=== PATIENT | female | born 2000 | race Caucasian/White ===

== ENCOUNTER 2020-06-24 09:56 | Inpatient (IN) | payer MEDICAID, SELFPAY ==
[2020-06-24] VITALS (32 sets, daily range): BP systolic 113–122; BP diastolic 57–84; PULSE 92–142; RESP 8–20; TEMP 36.5–37.7; O2SAT 100
--- NOTE | 2020-06-24 10:00 | RT.EKG_ITS ---
APPROVED REPORT Exam: Resting ECG Patient Location: E HR:131 bpm ECG Measurements Heart Rate 131 AXIS OH 120 P 73 QRSd 71 QRS 87 QT 288 T 56 QTc 426 Conclusion Sinus tachycardia...rate> 99
[2020-06-24] MEDS: Lactated Ringers 1,000 ML 1000 ML IV ×2 (10:40→12:11)
--- NOTE | 2020-06-24 10:43 | W.ED.GENAD ---
Discharge Plan Disposition Patient Disposition: OTHER Condition: Serious Discharge Details Clinical Impression: Colitis, Anemia Primary Care Provider: Mesha,Local ED Provider: Oseas Siu Home Meds and New Rx's Prescriptions: No Action No Known Home Meds RF: 0 Medical Decision Making This is a cachectic, frail, dry appearing 20-year-old female who is presenting today for a 1 year history of abdominal pain, nausea, intermittent diarrhea-constipation, 40 pound weight loss. She denies alcohol use, drug use, or smoking. She does report that celiac disease runs in her family. She has never sought medical attention until today. Patient is anxious, tearful, appears both physically and mentally uncomfortable. Patient admits that she does not like the hospital and that she did not want to come here today. Her family made her come. Case was immediately discussed with Dr. Dietz. IV access obtained. Patient will receive 2 L lactated Ringer's, 1 L normal saline, given her tachycardia will obtain routine laboratory values including troponin, D-dimer, magnesium, EKG, as well as routine laboratory values. Differential includes to malnutrition, electrolyte abnormality, anemia, Crohn's disease, IBS, celiac disease, anorexia, anxiety, stomach mass or CA, dehydration, etc. Patient is extremely anxious about having IV established. We initially talked about using a commode if she needed to use the restroom, became tearful once again. She is unable to provide a urine sample at this time. We discussed the potential need for catheterization. Patient becomes more anxious, tearful, declines catheterization. Initial laboratory values reveal a white blood cell count of 7.10 hemoglobin 8.8 hematocrit 31.3 platelet count is 701. CV 63.2. D-dimer 525. Electrolytes are unremarkable. Creatinine 0.67 with a GFR greater than 60. Glucose 111 calcium 8.8 magnesium 2.0 AST 12 ALT 15 alk phosphatase 120 troponin less than 0.05, lipase 55, TSH 2.26. Given her abdominal pain, 40 pound weight loss, tachycardia with elevated D-dimer, will obtain CTA of the chest as well as a CT of abdomen and pelvis with contrast. Patient has been unable to provide urine sample thus far. Will order serum hCG Heart rate is now in the 140s. hCG negative. CT is obtained Heart rate now in the 120s. Most recent blood pressure 113/60. Urinalysis is negative. Tox screen unremarkable. Patient has no local outpatient primary care provider, she has never seen mental health. I have requested her care management team, patient. Please see their note. I have also requested that mental health evaluate the patient as well. Stool cultures, C. difficile, occult blood, ordered and pending at this time. Patient had a single bowel movement prior to the order placed CT imaging reveals a normal chest CTA. Abdomen and pelvis reveals findings consistent with colitis from the descending colon through the rectum. Patient without elevated white count or fever. This is likely a more chronic finding, we will not initiate antibiotic therapy. Heart rate remains in the 120s. I do believe that the patient is too frail to be discharged home safely. I believe observation admission for further evaluation, IV hydration, observation, is all reasonable. I will discuss the case with Dr. Tubbs for observation admission. He is agreeable to admit the patient on observation status to [facility]. Imaging Data Radiologic Study: Attestation: I personally reviewed and interpreted this imaging study as follows: Imaging: CT Scan Radiologist's impression: CTA chest negative. Abdomen and pelvis CT findings consistent with a colitis from the descending colon to rectum. Lab Data Lab results reviewed: Yes I reviewed the patient's lab results. Lab results narrative: 06/24/20 13:49 Stool Stool Occult Blood ([facility]) - Pending Laboratory Tests Range/Units 06/24/20 06/24/20 06/24/20 10:30 10:30 10:30 WBC (4.4-10.8) 10^3/uL 7.10 RBC (3.93-5.22) 10^6/uL 4.95 Hgb (11.2-15.7) g/dL 8.8 L Hct (36.0-46.0) % 31.3 L MCV (80-95) fL 63.2 L MCH (27.0-33.0) pg 17.8 L MCHC (32.0-36.0) % 28.1 L RDW (11.7-14.6) % 17.5 H Plt Count (130-400) 10^3/uL 701 H MPV (8.0-11.0) fL 9.2 Immature Gran % 0.4 Neutrophils % 73.0 Lymphocytes % 13.0 Monocytes % 12.8 Eosinophils % 0.4 Basophils % 0.4 Nucleated RBC % % 0 Absolute Neutrophils (1.2-6.7) 10^3/uL 5.18 Absolute Lymphocytes (1.2-3.4) 10^3/uL 0.92 L Absolute Monocytes (0.1-0.8) 10^3/uL 0.91 H Absolute Eosinophils (0.0-0.7) 10^3/uL 0.03 Absolute Basophils (0.0-0.2) 10^3/uL 0.03 RBC Morphology See below Hypochromasia 2+ Poikilocytosis 3+ Microcytosis 2+ Ovalocytes 2+ D-Dimer (<500) ng/mlFEU Sodium (136-145) mmol/L 136 Potassium (3.5-5.1) mmol/L 3.8 Chloride (98-107) mmol/L 101 Carbon Dioxide (21.0-32.0) mmol/L 26.2 Anion Gap (3-11) mmol/L 8.8 BUN (7-18) mg/dL 14 Creatinine (0.55-1.02) mg/dL 0.67 Estimated GFR/1.73 m2 (mL/min/1.73m2) >= 60.00 Glucose (74-106) mg/dL 111 H Calcium (8.5-10.1) mg/dL 8.8 Magnesium (1.8-2.4) mg/dL 2.0 Total Bilirubin (0.2-1.0) mg/dL 0.3 AST (15-37) U/L 12 L ALT (14-59) U/L 15 Alkaline Phosphatase (46-116) U/L 120 H Troponin I (<0.06) ng/mL < 0.05 Total Protein (6.4-8.2) g/dL 6.9 Albumin (3.4-5.0) g/dL 2.1 L Lipase (73-393) U/L 55 TSH (0.36-3.74) uIU/mL 2.26 Serum HCG, Qual Urine Color (Yellow) Urine Clarity (Clear) Urine pH (5-8) Ur Specific [place] (1.005-1.025) Urine Protein (Negative) mg/dL Urine Ketones (Negative) mg/dL Urine Blood (Negative) Urine Nitrite (Negative) Urine Bilirubin (Negative) Urine Urobilinogen (Up TO 0.2) EU/dL Ur Leukocyte Esterase (Negative) Urine Glucose (Negative) mg/dL Urine Opiates Screen (Negative) Urine Methadone Screen (Negative) Ur Barbiturates Screen (Negative) Ur Tricyclics Screen (Negative) Ur Amphetamines Screen (Negative) U Benzodiazepines Scrn (Negative) Urine Cocaine Screen (Negative) Ur THC Screen (Negative) Path Cons Comment Range/Units 06/24/20 06/24/20 06/24/20 10:30 10:30 13:00 WBC (4.4-10.8) 10^3/uL RBC (3.93-5.22) 10^6/uL Hgb (11.2-15.7) g/dL Hct (36.0-46.0) % MCV (80-95) fL MCH (27.0-33.0) pg MCHC (32.0-36.0) % RDW (11.7-14.6) % Plt Count (130-400) 10^3/uL MPV (8.0-11.0) fL Immature Gran % Neutrophils % Lymphocytes % Monocytes % Eosinophils % Basophils % Nucleated RBC % % Absolute Neutrophils (1.2-6.7) 10^3/uL Absolute Lymphocytes (1.2-3.4) 10^3/uL Absolute Monocytes (0.1-0.8) 10^3/uL Absolute Eosinophils (0.0-0.7) 10^3/uL Absolute Basophils (0.0-0.2) 10^3/uL RBC Morphology Hypochromasia Poikilocytosis Microcytosis Ovalocytes D-Dimer (<500) ng/mlFEU 525 H Sodium (136-145) mmol/L Potassium (3.5-5.1) mmol/L Chloride (98-107) mmol/L Carbon Dioxide (21.0-32.0) mmol/L Anion Gap (3-11) mmol/L BUN (7-18) mg/dL Creatinine (0.55-1.02) mg/dL Estimated GFR/1.73 m2 (mL/min/1.73m2) Glucose (74-106) mg/dL Calcium (8.5-10.1) mg/dL Magnesium (1.8-2.4) mg/dL Total Bilirubin (0.2-1.0) mg/dL AST (15-37) U/L ALT (14-59) U/L Alkaline Phosphatase (46-116) U/L Troponin I (<0.06) ng/mL Total Protein (6.4-8.2) g/dL Albumin (3.4-5.0) g/dL Lipase (73-393) U/L TSH (0.36-3.74) uIU/mL Serum HCG, Qual Negative Urine Color (Yellow) Yellow Urine Clarity (Clear) Clear Urine pH (5-8) 7.5 Ur Specific [place] (1.005-1.025) 1.015 Urine Protein (Negative) mg/dL Negative Urine Ketones (Negative) mg/dL Negative Urine Blood (Negative) Negative Urine Nitrite (Negative) Negative Urine Bilirubin (Negative) Negative Urine Urobilinogen (Up TO 0.2) EU/dL 0.2 Ur Leukocyte Esterase (Negative) Negative Urine Glucose (Negative) mg/dL Negative Urine Opiates Screen (Negative) Urine Methadone Screen (Negative) Ur Barbiturates Screen (Negative) Ur Tricyclics Screen (Negative) Ur Amphetamines Screen (Negative) U Benzodiazepines Scrn (Negative) Urine Cocaine Screen (Negative) Ur THC Screen (Negative) Path Cons Comment Range/Units 06/24/20 13:00 WBC (4.4-10.8) 10^3/uL RBC (3.93-5.22) 10^6/uL Hgb (11.2-15.7) g/dL Hct (36.0-46.0) % MCV (80-95) fL MCH (27.0-33.0) pg MCHC (32.0-36.0) % RDW (11.7-14.6) % Plt Count (130-400) 10^3/uL MPV (8.0-11.0) fL Immature Gran % Neutrophils % Lymphocytes % Monocytes % Eosinophils % Basophils % Nucleated RBC % % Absolute Neutrophils (1.2-6.7) 10^3/uL Absolute Lymphocytes (1.2-3.4) 10^3/uL Absolute Monocytes (0.1-0.8) 10^3/uL Absolute Eosinophils (0.0-0.7) 10^3/uL Absolute Basophils (0.0-0.2) 10^3/uL RBC Morphology Hypochromasia Poikilocytosis Microcytosis Ovalocytes D-Dimer (<500) ng/mlFEU Sodium (136-145) mmol/L Potassium (3.5-5.1) mmol/L Chloride (98-107) mmol/L Carbon Dioxide (21.0-32.0) mmol/L Anion Gap (3-11) mmol/L BUN (7-18) mg/dL Creatinine (0.55-1.02) mg/dL Estimated GFR/1.73 m2 (mL/min/1.73m2) Glucose (74-106) mg/dL Calcium (8.5-10.1) mg/dL Magnesium (1.8-2.4) mg/dL Total Bilirubin (0.2-1.0) mg/dL AST (15-37) U/L ALT (14-59) U/L Alkaline Phosphatase (46-116) U/L Troponin I (<0.06) ng/mL Total Protein (6.4-8.2) g/dL Albumin (3.4-5.0) g/dL Lipase (73-393) U/L TSH (0.36-3.74) uIU/mL Serum HCG, Qual Urine Color (Yellow) Urine Clarity (Clear) Urine pH (5-8) Ur Specific [place] (1.005-1.025) Urine Protein (Negative) mg/dL Urine Ketones (Negative) mg/dL Urine Blood (Negative) Urine Nitrite (Negative) Urine Bilirubin (Negative) Urine Urobilinogen (Up TO 0.2) EU/dL Ur Leukocyte Esterase (Negative) Urine Glucose (Negative) mg/dL Urine Opiates Screen (Negative) Negative Urine Methadone Screen (Negative) Negative Ur Barbiturates Screen (Negative) Negative Ur Tricyclics Screen (Negative) Negative Ur Amphetamines Screen (Negative) Negative U Benzodiazepines Scrn (Negative) Negative Urine Cocaine Screen (Negative) Negative Ur THC Screen (Negative) Negative Path Cons Comment ECG Data Attestation: I personally reviewed and interpreted this ECG (s) as follows: Interpretation: Please see official report by Dr. Dietz. Sinus tachycardia, ventricular rate of 131. No STEMI. HPI General Mode of arrival: ambulatory. Date/Time Provider Initiated Documentation: 06/24/20 09:58. Limitations to Documentation: no limitations. Information obtained by: patient and family. HPI Narrative: This is a 20-year-old female who denies any significant past medical history presenting to the ER today with her boyfriend for evaluation. Patient reports a year-long history of weight loss, a total of nearly 40 pounds. She reports generalized abdominal pain that is intermittent and typically worse after eating. Associated with nausea but no vomiting. She knows that she does not eat enough food, anywhere between 800-1800 yvette, but when she eats her pain increases and she feels full very easily. She does note that celiac disease runs in her family. She reports generalized weakness, feeling lightheaded, and the symptoms are made worse upon standing. She states that this is been going on for too long, has never sought medical attention, and finally today her family made her get evaluated. She denies recent illness, travel, trauma. She states that she has intermittent constipation and diarrhea, but not typically normal bowels. She denies headache, visual changes, chest pain, cough, shortness of breath, back pain, dysuria, hematuria, black tarry stools or bright red blood in her stools. She denies skin rash, numbness, tingling, weakness. She does report overall stress and anxiety. She does state that when she weighed 135 pounds she was happy with her appearance and that the weight loss was not intentional. She denies any depression. She denies any suicidal or homicidal ideations. She reports feeling safe. Related Data Home Medications Medication Instructions Recorded Confirmed Unknown [No Known Home Meds] 06/24/20 06/24/20 Allergies Allergy/AdvReac Type Severity Reaction Status Date / Time No Known Allergies Allergy Unverified 06/24/20 10:13 General Stated Complaint: GenMedical JOSEPH: 2 Review of Systems Constitutional Constitutional: Reports fatigue and Denies fever(s) Eyes Eyes: Denies change in vision ENT Ears, Nose, Mouth, and Throat: Denies neck pain Cardiovascular Cardiovascular: Denies chest pain and Denies dyspnea Respiratory Respiratory: Denies cough and Denies dyspnea Gastrointestinal Gastrointestinal: Reports abdominal pain, Denies melena, Denies hematochezia, Reports constipation, Reports diarrhea, Reports nausea and Denies vomiting Genitourinary Genitourinary: Denies dysuria Musculoskeletal Musculoskeletal: Denies back pain and Denies neck pain Integumentary/Breasts Skin/Breast: Denies rash Neurologic Neurologic: Reports weakness (Generalized) Psychiatric Psychiatric: Reports anxiety, Reports change in appetite, Denies depression, Denies homicidal ideation and Denies suicidal ideation Endocrine Endocrine: Reports fatigue Hematologic/Lymphatic Hematologic/Lymphatic: Denies easy bleeding and Denies easy bruising [facility] Social History Smoking/Tobacco Use Status: Never Alcohol Intake: never Drug use: Never Substance use type: does not use Do you feel safe at home: Yes Do you feel safe in your relationship?: Yes Exam Const General: cooperative, anxious, frail appearing and ill appearing Nutritional Appearance: cachectic Orientation: alert, awake and oriented x3 HENMT Head: normal to inspection, normocephalic and atraumatic General nose exam: external nose normal Face and sinus: normal facial exam Mouth: moist mucous membranes abnormal (Dry) Throat: posterior oropharynx normal Eyes General: appearance normal, both eyes and all related structures Alignment and Position: alignment normal Periorbital: periorbital findings normal Eyelids: eyelids normal Conjunctivae: conjunctivae normal Sclera: sclerae normal Cornea: corneas normal Pupils: PERRL EOM: EOM intact bilaterally Direct ophthalmoscopy: normal light reflex Neck Neck: normal visual inspection, full ROM, no lymphadenopathy, no meningeal signs, trachea midline, supple and nontender Resp Effort & Inspection: normal respiratory effort and able to speak in complete sentences Auscultation: clear to auscultation bilaterally Cardio Rate: tachycardic (In the 170s) Rhythm: regular rhythm GI Inspection: other (Thin) Palpation: soft, not firm, no guarding, not rigid and nontender Auscultation: normal bowel sounds Back/Spine/Pelvis Back: No back tenderness Skin General skin exam: no rashes or lesions noted Neuro General: patient alert, patient awake, patient oriented x3, moves all extremities and no focal motor deficits Cranial Nerves: CN's II-XI intact bilaterally Cognition: normal cognition Speech: speech normal Gait: normal gait Motor: muscle tone normal throughout Sensory Exam: no sensory deficits noted Extrem General: normal to inspection, full ROM and capillary refill normal Psych Appearance: grossly normal Mental Status: mental status grossly normal Speech and Movement: speech and movement normal Mood: anxious mood Affect: anxious affect Attitude: cooperative Thought Process: normal Thought Content: normal Insight: fair Judgment: fair Course Vital Signs Vital signs: Vital Signs Temperature 36.5 C 06/24/20 10:03 Pulse 92 H 06/24/20 10:03 Respiratory Rate 18 06/24/20 10:03 Blood Pressure 121/69 06/24/20 10:03 Pulse Oximetry 100 06/24/20 10:03 Temperature 36.5 C 06/24/20 10:03 Temperature Source Skin 06/24/20 10:03 Pulse 92 H 06/24/20 10:03 Respiratory Rate 18 06/24/20 10:03 Respiratory Effort 06/24/20 10:17 Blood Pressure 121/69 06/24/20 10:03 Blood Pressure Position Sitting 06/24/20 10:03 Pulse Oximetry 100 06/24/20 10:03 Oxygen Delivery Method Room Air 06/24/20 10:03 Oxygen Flow Rate 0 06/24/20 10:03 Pain Level 3 06/24/20 10:03 Comment 06/24/20 10:03 Critical Care Time Critical Care Time Critical Care Time: Yes Total Critical Care Time: 45 Attestation: Upon my evaluation, this patient had a high probability of clinically significant, life-threatening deterioration due to their current medical conditions, which required my direct attention, intervention, and personal management. I have personally provided greater than 30 minutes of critical care time exclusive of the time spend on separately billable procedures. Time includes obtaining a history, examining the patient, pulse oximetry, review of laboratory data, radiology results, discussion with consultants, arranging urgent treatment with development of a management plan, evaluation of patient's response to treatment, and monitoring for potential decompensation. Interventions were performed as documented above.
[2020-06-24 10:53] LABS: Abs Immature Grans 0.03 10^3/uL (0.0-0.06); Absolute Basophil Count 0.03 10^3/uL (0.0-0.2); Absolute Eosinophil Count 0.03 10^3/uL (0.0-0.7); Absolute Lymphocyte Count 0.92 10^3/uL (1.2-3.4); Absolute Monocyte Count 0.91 10^3/uL (0.1-0.8); Absolute Neutrophil Count 5.18 10^3/uL (1.2-6.7); Basophils % 0.4; Eosinophils % 0.4; HCT 31.3 % (36.0-46.0); HGB 8.8 g/dL (11.2-15.7); Immature Grans % 0.4; MCH 17.8 pg (27.0-33.0); MCHC 28.1 % (32.0-36.0); MCV 63.2 fL (80-95); MPV 9.2 fL (8.0-11.0); Monocytes % 12.8; Nucleated RBC 0 %; RBC 4.95 10^6/uL (3.93-5.22); RDW 17.5 % (11.7-14.6); RDW-SD 38.2 fL
[2020-06-24 11:18] LABS: ALT 15 U/L (14-59); AST 12 U/L (15-37); Albumin 2.1 g/dL (3.4-5.0); Alkaline Phosphatase 120 U/L (46-116); Anion Gap 8.8 mmol/L (3-11); BUN 14 mg/dL (7-18); Bilirubin, Total 0.3 mg/dL (0.2-1.0); CO2 26.2 mmol/L (21.0-32.0); CREATININE 0.67 mg/dL (0.55-1.02); Calcium 8.8 mg/dL (8.5-10.1); Chloride 101 mmol/L (98-107); Glucose 111 mg/dL (74-106); Lipase 55 U/L (73-393); Potassium 3.8 mmol/L (3.5-5.1); Sodium 136 mmol/L (136-145); TSH (W/Ref FT4) 2.26 uIU/mL (0.36-3.74); Total Protein 6.9 g/dL (6.4-8.2); Troponin I < 0.05 ng/mL (<0.06)
[2020-06-24 11:26] LABS: Diff Comment Diff Reviewed; Hypochromasia 2+; Microcytosis 2+; Ovalocytes 2+
[2020-06-24 11:29] LABS: Platelet Count 701 10^3/uL (130-400); Poikilocytes 3+
[2020-06-24 11:42] LABS: D-Dimer 525 ng/mlFEU (<500)
--- NOTE | 2020-06-24 11:49 | DI.CT_ITS ---
EXAM: CT CHEST PE ABD PELVIS W CLINICAL HISTORY: Tachycardia, elevated D-dimer. TECHNIQUE: Imaging Protocol: Axial CT angiography was performed with multi-slice acquisition and mu lti-planar and/or 3D reconstructions. CONTRAST MATERIAL: Intravenous: Omnipaque 350 Contrast volume:100 cc COMPARISON: No exams were available for comparison FINDINGS: Chest CT: Pulmonary Arteries: No evidence of filling defect to suggest pulmonary emboli. Tracheobronchial tree: Patent where visualized. Mediastinum and Haley: No dominant adenopathy or fluid collection. Pulmonary parenchyma: No consolidation or dominant measurable mass. Mildly limited evaluation due to respiratory motion. Pleura: No effusion or pneumothorax. Heart: The heart is not dilated. No coronary artery calcifications are seen. Aorta: Thoracic aorta non-dilated. Bones: Normal. Abdomen pelvic CT: The liver, spleen, pancreas, kidneys and adrenals have a normal appearance. There is marked wall thickening of the descending, sigmoid colon and rectum, consistent with colitis . Th ere is no evident evidence of pneumatosis or bowel obstruction. There is no free air. There is a tr josé amount of fluid in the low pelvis. Small bowel and appendix are unremarkable. The uterus, ovari es and bladder have a normal appearance. IMPRESSION: No evidence of pulmonary embolism or other acute abnormality in the chest. Findings consistent with colitis from the descending colon through rectum. RADIATION DOSE DELIVERED: 664.92mGy.cm Total DLP DATA REPOSITORY: All CT scans at this facility are submitted to the National Radiology Data Registry (NRDR) Dose Index Registry (DIR) with the [employer] ([employer]). RADIATION OPTIMIZATION: All CT scans at this facility use at least one of these dose optimization te chniques: automated exposure control; mA and/or kV adjustment per patient size (includes targeted exa ms where dose is matched to clinical indication); or iterative reconstruction.
[2020-06-24] MEDS: Omnipaque 350 MG/ML 100 ML BTL IJ (12:12)
[2020-06-24] MEDS: Normal Saline - Diluent 50 ML VIAL IV (12:12)
[2020-06-24 12:34] LABS: HCG Qual (Serum) Negative
[2020-06-24 13:23] LABS: Bilirubin Negative (Negative); Blood Negative (Negative); Clarity Clear (Clear); Glucose Negative (Negative); Ketones Negative (Negative); Leukocyte Esterase Negative (Negative); Nitrite Negative (Negative); Specific Gravity 1.015 (1.005-1.025); Urobilinogen 0.2 EU/dL (Up TO 0.2); pH 7.5 (5-8)
[2020-06-24 13:40] LABS: *AMPHETAMINES SCREEN URINE Negative (Negative); *BARBITURATES SCREEN URINE Negative (Negative); *BENZODIAZEPINES SCREEN URINE Negative (Negative); Cannabinoids THC Negative (Negative); Cocaine Screen,Urine Negative (Negative); METHADONE URINE SCREEN Negative (Negative); OPIATES URINE SCREEN Negative (Negative)
[2020-06-24 13:43] LABS: Tricyclic Antidepressants Negative (Negative)
--- NOTE | 2020-06-24 15:21 | HPE_ITS ---
Assessment and Plan Assessment and plan (1) Colitis: Start date: 06/24/20 Start time: 15:43 Status: Acute Assessment and plan: Young female with months of crampy abdominal pain with 15-20 stools per day. frail, thin, cachetic appearing. Dry MM, pale skin and conjunctiva. Differential includes: colitis vs crohns vs celiac Surgery consulted, given lack of PCP and how thin patient is, poor po intake, pain, it would beneficial for patient to have scope while in hospital. Hemastest stool negative. Testing stool for cdiff, lactoferrin, Hydrate with IVF, clears Bentayl for crampy pain and morphine as needed, antiemetics. She has not seen an provider for symptoms in the past. (2) Anemia: Start date: 06/24/20 Start time: 15:47 Status: Chronic Assessment and plan: This is likely a condition of underlying disease, which leads me to think crohns is high on differential. It appears stable, no need for transfusion at this time. no blood in stool. Will monitor CBC Above case discussed with Dr. Tubbs who is in agreement. History of Present Illness History of Present Illness Chief Complaint: Colitis, diarrhea, abdominal pain Narrative: 20 y.o female with no PMH presents to [facility] ED after months of abdominal pain with about a 40 lb wt loss. Ms. Landaverde states that her wt loss has been progressive over the last couple months due to severe crampy abdominal pain followed by a bowel movements. She endorses approx 15-20 stools a day sometimes relieving the pain and other times leaving her feeling as though she has to continue to go. Labs in the ED revealing for anemia, otherwise unremarkable. Imaging of CT reveals colitis from descending colon. Will r/o cdiff. Likely diagnosis of crohns given anemia, 15-20 stools, abdominal pain. Surgery consulted. Will give IV hydration, antiemetic and bowel meds. Keep on clears. She denies pain at this time. Hemastool negative. Review of Systems All systems reviewed & are unremarkable except as noted in HPI and below PFSH Family History (Updated 06/24/20 @ 15:39 by Anila Tim NP) Sister Diabetes Mother Celiac disease Multiple sclerosis Social History Smoking/Tobacco Use Status: Never Alcohol Intake: never Drug use: Never Substance use type: does not use Do you feel safe at home: Yes Do you feel safe in your relationship?: Yes Meds Home Medications and Allergies Home Medications Medication Instructions Recorded Confirmed Type Unknown [No Known Home Meds] 06/24/20 06/24/20 History Allergies Allergy/AdvReac Type Severity Reaction Status Date / Time No Known Allergies Allergy Unverified 06/24/20 10:13 Exam Narrative Exam Narrative: Frail ill appearing, pale, cachetic young lady. AAOx3. Eyes PE RRLA, neck without JVD, lymphedema. Chest atraumatic, scaphoid, concave, able to see ribs and sternum. LSC bilateral no wheezing, rales or rhonchi. HR RRR no murmur appreciated. BS x4 quads, hypoactive. Back, normal curvature, able to see spine and make out ribs. Skin: pale, mm dry, no open areas or rashes Neuro: AAOx3 Extrem: no clubbing cyanosis or edema, Results Labs Result diagrams: 06/24/20 10:30 06/24/20 10:30 Labs: Laboratory Results - last 24 hr 06/24/20 06/24/20 06/24/20 10:30 10:30 10:30 WBC 7.10 RBC 4.95 Hgb 8.8 L Hct 31.3 L MCV 63.2 L MCH 17.8 L MCHC 28.1 L RDW 17.5 H Plt Count 701 H MPV 9.2 Immature Gran % 0.4 Neutrophils % 73.0 Lymphocytes % 13.0 Monocytes % 12.8 Eosinophils % 0.4 Basophils % 0.4 Nucleated RBC % 0 Absolute Neutrophils 5.18 Absolute Lymphocytes 0.92 L Absolute Monocytes 0.91 H Absolute Eosinophils 0.03 Absolute Basophils 0.03 RBC Morphology See below Hypochromasia 2+ Poikilocytosis 3+ Microcytosis 2+ Ovalocytes 2+ D-Dimer Sodium 136 Potassium 3.8 Chloride 101 Carbon Dioxide 26.2 Anion Gap 8.8 BUN 14 Creatinine 0.67 Estimated GFR/1.73 m2 >= 60.00 Glucose 111 H Calcium 8.8 Magnesium 2.0 Total Bilirubin 0.3 AST 12 L ALT 15 Alkaline Phosphatase 120 H Troponin I < 0.05 Total Protein 6.9 Albumin 2.1 L Lipase 55 TSH 2.26 Serum HCG, Qual Urine Color Urine Clarity Urine pH Ur Specific [place] Urine Protein Urine Ketones Urine Blood Urine Nitrite Urine Bilirubin Urine Urobilinogen Ur Leukocyte Esterase Urine Glucose Urine Opiates Screen Urine Methadone Screen Ur Barbiturates Screen Ur Tricyclics Screen Ur Amphetamines Screen U Benzodiazepines Scrn Urine Cocaine Screen Ur THC Screen Path Cons Comment 06/24/20 06/24/20 06/24/20 10:30 10:30 13:00 WBC RBC Hgb Hct MCV MCH MCHC RDW Plt Count MPV Immature Gran % Neutrophils % Lymphocytes % Monocytes % Eosinophils % Basophils % Nucleated RBC % Absolute Neutrophils Absolute Lymphocytes Absolute Monocytes Absolute Eosinophils Absolute Basophils RBC Morphology Hypochromasia Poikilocytosis Microcytosis Ovalocytes D-Dimer 525 H Sodium Potassium Chloride Carbon Dioxide Anion Gap BUN Creatinine Estimated GFR/1.73 m2 Glucose Calcium Magnesium Total Bilirubin AST ALT Alkaline Phosphatase Troponin I Total Protein Albumin Lipase TSH Serum HCG, Qual Negative Urine Color Yellow Urine Clarity Clear Urine pH 7.5 Ur Specific [place] 1.015 Urine Protein Negative Urine Ketones Negative Urine Blood Negative Urine Nitrite Negative Urine Bilirubin Negative Urine Urobilinogen 0.2 Ur Leukocyte Esterase Negative Urine Glucose Negative Urine Opiates Screen Urine Methadone Screen Ur Barbiturates Screen Ur Tricyclics Screen Ur Amphetamines Screen U Benzodiazepines Scrn Urine Cocaine Screen Ur THC Screen Path Cons Comment 06/24/20 13:00 WBC RBC Hgb Hct MCV MCH MCHC RDW Plt Count MPV Immature Gran % Neutrophils % Lymphocytes % Monocytes % Eosinophils % Basophils % Nucleated RBC % Absolute Neutrophils Absolute Lymphocytes Absolute Monocytes Absolute Eosinophils Absolute Basophils RBC Morphology Hypochromasia Poikilocytosis Microcytosis Ovalocytes D-Dimer Sodium Potassium Chloride Carbon Dioxide Anion Gap BUN Creatinine Estimated GFR/1.73 m2 Glucose Calcium Magnesium Total Bilirubin AST ALT Alkaline Phosphatase Troponin I Total Protein Albumin Lipase TSH Serum HCG, Qual Urine Color Urine Clarity Urine pH Ur Specific [place] Urine Protein Urine Ketones Urine Blood Urine Nitrite Urine Bilirubin Urine Urobilinogen Ur Leukocyte Esterase Urine Glucose Urine Opiates Screen Negative Urine Methadone Screen Negative Ur Barbiturates Screen Negative Ur Tricyclics Screen Negative Ur Amphetamines Screen Negative U Benzodiazepines Scrn Negative Urine Cocaine Screen Negative Ur THC Screen Negative Path Cons Comment Last Vital Signs Temp 36.5 C 06/24/20 14:54 Pulse 104 H 06/24/20 14:54 Resp 20 06/24/20 14:54 BP 116/84 10/19/20 14:54 Pulse Ox 100 06/24/20 14:54 COVID-19 Screening Have you,or household,traveled outside [place] in last 14 days?: No Had IN PERSON contact w/suspected or confirmed C-19 person: No
[2020-06-24] MEDS: Normal Saline 1,000 ML 75 ML IV (15:26)
[2020-06-24] MEDS: Dicyclomine 10 MG CAP PO ×2 (15:26→19:51)
[2020-06-24 15:49] LABS: HCT 26.8 % (36.0-46.0); HGB 7.5 g/dL (11.2-15.7)
[2020-06-24] MEDS: LORazepam 0.5 MG TAB PO (19:51)
--- NOTE | 2020-06-24 20:12 | SCONE_ITS ---
Date of service: 06/24/20 Time of Service: 14:20 Assessment and Plan Assessment and plan (1) Colitis: Status: Acute Assessment and plan: The chronic nature, anemia, weight loss suggest IBD although stool studies are a good idea. She will need colonoscopy for further evaluation. This could potentially be done this admission after resuscitation and test results return, or could be done in the short term as an outpatient. Will follow and make plans as indicated. History of Present Illness Narrative: This 20 year old woman presented to the ER today for evaluation of many months of crampy abdominal pain, weight loss and bowel changes. She can have up to 20 stools/day. Occasional blood present. She has lost 40#. No FH IBD. Currently denies pain. CT reviewed and shows thickening of the descending colon and rectum. Review of Systems All systems reviewed & are unremarkable except as noted in HPI and below PFSH Family History Sister Diabetes Mother Celiac disease Multiple sclerosis Social History Smoking/Tobacco Use Status: Never Alcohol Intake: never Drug use: Never Substance use type: does not use Do you feel safe at home: Yes Do you feel safe in your relationship?: Yes Exam Narrative Exam Narrative: Appears pale, very thin Abdomen is flat, soft, nontender. Results Last Vital Signs Temp 99.1 F 06/24/20 15:29 Pulse 111 H 06/24/20 15:29 Resp 18 06/24/20 15:29 BP 121/79 06/24/20 15:29 Pulse Ox 100 06/24/20 15:29 Labs Result diagrams: 06/24/20 15:40 06/24/20 10:30 Labs: Laboratory Results - last 24 hr 06/24/20 06/24/20 06/24/20 10:30 10:30 10:30 WBC 7.10 RBC 4.95 Hgb 8.8 L Hct 31.3 L MCV 63.2 L MCH 17.8 L MCHC 28.1 L RDW 17.5 H Plt Count 701 H MPV 9.2 Immature Gran % 0.4 Neutrophils % 73.0 Lymphocytes % 13.0 Monocytes % 12.8 Eosinophils % 0.4 Basophils % 0.4 Nucleated RBC % 0 Absolute Neutrophils 5.18 Absolute Lymphocytes 0.92 L Absolute Monocytes 0.91 H Absolute Eosinophils 0.03 Absolute Basophils 0.03 RBC Morphology See below Hypochromasia 2+ Poikilocytosis 3+ Microcytosis 2+ Ovalocytes 2+ D-Dimer Sodium 136 Potassium 3.8 Chloride 101 Carbon Dioxide 26.2 Anion Gap 8.8 BUN 14 Creatinine 0.67 Estimated GFR/1.73 m2 >= 60.00 Glucose 111 H Calcium 8.8 Magnesium 2.0 Total Bilirubin 0.3 AST 12 L ALT 15 Alkaline Phosphatase 120 H Troponin I < 0.05 Total Protein 6.9 Albumin 2.1 L Lipase 55 TSH 2.26 Serum HCG, Qual Urine Color Urine Clarity Urine pH Ur Specific [place] Urine Protein Urine Ketones Urine Blood Urine Nitrite Urine Bilirubin Urine Urobilinogen Ur Leukocyte Esterase Urine Glucose Urine Opiates Screen Urine Methadone Screen Ur Barbiturates Screen Ur Tricyclics Screen Ur Amphetamines Screen U Benzodiazepines Scrn Urine Cocaine Screen Ur THC Screen Path Cons Comment 06/24/20 06/24/20 06/24/20 10:30 10:30 13:00 WBC RBC Hgb Hct MCV MCH MCHC RDW Plt Count MPV Immature Gran % Neutrophils % Lymphocytes % Monocytes % Eosinophils % Basophils % Nucleated RBC % Absolute Neutrophils Absolute Lymphocytes Absolute Monocytes Absolute Eosinophils Absolute Basophils RBC Morphology Hypochromasia Poikilocytosis Microcytosis Ovalocytes D-Dimer 525 H Sodium Potassium Chloride Carbon Dioxide Anion Gap BUN Creatinine Estimated GFR/1.73 m2 Glucose Calcium Magnesium Total Bilirubin AST ALT Alkaline Phosphatase Troponin I Total Protein Albumin Lipase TSH Serum HCG, Qual Negative Urine Color Yellow Urine Clarity Clear Urine pH 7.5 Ur Specific [place] 1.015 Urine Protein Negative Urine Ketones Negative Urine Blood Negative Urine Nitrite Negative Urine Bilirubin Negative Urine Urobilinogen 0.2 Ur Leukocyte Esterase Negative Urine Glucose Negative Urine Opiates Screen Urine Methadone Screen Ur Barbiturates Screen Ur Tricyclics Screen Ur Amphetamines Screen U Benzodiazepines Scrn Urine Cocaine Screen Ur THC Screen Path Cons Comment 06/24/20 06/24/20 13:00 15:40 WBC RBC Hgb 7.5 L Hct 26.8 L MCV MCH MCHC RDW Plt Count MPV Immature Gran % Neutrophils % Lymphocytes % Monocytes % Eosinophils % Basophils % Nucleated RBC % Absolute Neutrophils Absolute Lymphocytes Absolute Monocytes Absolute Eosinophils Absolute Basophils RBC Morphology Hypochromasia Poikilocytosis Microcytosis Ovalocytes D-Dimer Sodium Potassium Chloride Carbon Dioxide Anion Gap BUN Creatinine Estimated GFR/1.73 m2 Glucose Calcium Magnesium Total Bilirubin AST ALT Alkaline Phosphatase Troponin I Total Protein Albumin Lipase TSH Serum HCG, Qual Urine Color Urine Clarity Urine pH Ur Specific [place] Urine Protein Urine Ketones Urine Blood Urine Nitrite Urine Bilirubin Urine Urobilinogen Ur Leukocyte Esterase Urine Glucose Urine Opiates Screen Negative Urine Methadone Screen Negative Ur Barbiturates Screen Negative Ur Tricyclics Screen Negative Ur Amphetamines Screen Negative U Benzodiazepines Scrn Negative Urine Cocaine Screen Negative Ur THC Screen Negative Path Cons Comment
[2020-06-25 03:38] VITALS: BP 101/62; PULSE 105; RESP 16; TEMP 37.2; O2SAT 100
[2020-06-25 06:39] LABS: Abs Immature Grans 0.02 10^3/uL (0.0-0.06); Absolute Basophil Count 0.04 10^3/uL (0.0-0.2); Absolute Eosinophil Count 0.08 10^3/uL (0.0-0.7); Absolute Lymphocyte Count 0.73 10^3/uL (1.2-3.4); Absolute Monocyte Count 0.62 10^3/uL (0.1-0.8); Absolute Neutrophil Count 2.79 10^3/uL (1.2-6.7); Basophils % 0.9; Eosinophils % 1.9; HCT 25.6 % (36.0-46.0); HGB 7.3 g/dL (11.2-15.7); Immature Grans % 0.5; Lymphocytes % 17.1; MCH 18.2 pg (27.0-33.0); MCHC 28.5 % (32.0-36.0); MCV 63.8 fL (80-95); MPV 8.2 fL (8.0-11.0); Monocytes % 14.5; Neutrophils % 65.1; Nucleated RBC 0 %; Platelet Count 552 10^3/uL (130-400); RBC 4.01 10^6/uL (3.93-5.22); RDW 17.1 % (11.7-14.6); RDW-SD 38.8 fL; WBC 4.28 10^3/uL (4.4-10.8)
[2020-06-25 06:49] LABS: Anion Gap 9.3 mmol/L (3-11); BUN 7 mg/dL (7-18); CO2 25.7 mmol/L (21.0-32.0); CREATININE 0.59 mg/dL (0.55-1.02); Calcium 7.9 mg/dL (8.5-10.1); Chloride 101 mmol/L (98-107); Glucose 88 mg/dL (74-106); Potassium 3.4 mmol/L (3.5-5.1); Sodium 136 mmol/L (136-145)
[2020-06-25] MEDS: Normal Saline 1,000 ML 75 ML IV (07:00)
[2020-06-25 07:44] VITALS: BP 117/67; PULSE 107; RESP 16; TEMP 37.5; O2SAT 99
[2020-06-25 07:55] LABS: COVID-19 RT-PCR UVMMC Result Negative (Negative)
[2020-06-25] MEDS: LORazepam 0.5 MG TAB PO (08:18)
[2020-06-25] MEDS: Dicyclomine 10 MG CAP PO ×2 (08:18→12:47)
[2020-06-25] MEDS: Potassium Chloride Liquid 20 MEQ PKT PO (08:18)
--- NOTE | 2020-06-25 09:25 | PGE_ITS ---
Date of Service Date of service: 06/25/20 Time of Service: 09:25 Assessment and Plan Assessment and plan (1) Colitis: Status: Acute Assessment and plan: Young female with months of crampy abdominal pain with 15-20 stools per day. frail, thin, cachetic appearing. Dry MM, pale skin and conjunctiva. Differential includes: colitis vs crohns vs celiac Surgery consulted, given lack of PCP and how thin patient is, poor po intake, pain, it would beneficial for patient to have scope while in hospital. Hemastest stool negative. Testing stool for cdiff, lactoferrin, Hydrate with IVF, clears Bentayl for crampy pain and morphine as needed, antiemetics. She has not seen an provider for symptoms in the past. (2) Anemia: Status: Chronic Assessment and plan: This is likely a condition of underlying disease, which leads me to think crohns is high on differential. It appears stable, no need for transfusion at this time. no blood in stool. Will monitor CBC Above case discussed with Dr. Tubbs who is in agreement. Subjective Subjective Patient reports: no new complaints Exam Narrative Exam Narrative: Frail ill appearing, pale, cachetic young lady. AAOx3. Eyes PERRLA, neck without JVD, lymphedema. Chest atraumatic, scaphoid, concave, able to see ribs and sternum. LSC bilateral no wheezing, rales or rhonchi. HR RRR no murmur appreciated. BS x4 quads, hypoactive. Back, normal curvature, able to see spine and make out ribs. Skin: pale, mm dry, no open areas or rashes Neuro: AAOx3 Extrem: no clubbing cyanosis or edema, Objective Last Vital Signs Temp 37.5 C 06/25/20 07:44 Pulse 107 H 06/25/20 07:44 Resp 16 06/25/20 07:44 BP 117/67 06/25/20 07:44 Pulse Ox 99 06/25/20 07:44 Laboratory Results - last 24 hr 06/24/20 06/24/20 06/24/20 10:30 10:30 10:30 WBC 7.10 RBC 4.95 Hgb 8.8 L Hct 31.3 L MCV 63.2 L MCH 17.8 L MCHC 28.1 L RDW 17.5 H Plt Count 701 H MPV 9.2 Immature Gran % 0.4 Neutrophils % 73.0 Lymphocytes % 13.0 Monocytes % 12.8 Eosinophils % 0.4 Basophils % 0.4 Nucleated RBC % 0 Absolute Neutrophils 5.18 Absolute Lymphocytes 0.92 L Absolute Monocytes 0.91 H Absolute Eosinophils 0.03 Absolute Basophils 0.03 RBC Morphology See below Hypochromasia 2+ Poikilocytosis 3+ Microcytosis 2+ Ovalocytes 2+ D-Dimer Sodium 136 Potassium 3.8 Chloride 101 Carbon Dioxide 26.2 Anion Gap 8.8 BUN 14 Creatinine 0.67 Estimated GFR/1.73 m2 >= 60.00 Glucose 111 H Calcium 8.8 Magnesium 2.0 Total Bilirubin 0.3 AST 12 L ALT 15 Alkaline Phosphatase 120 H Troponin I < 0.05 Total Protein 6.9 Albumin 2.1 L Lipase 55 TSH 2.26 Serum HCG, Qual Urine Color Urine Clarity Urine pH Ur Specific [place] Urine Protein Urine Ketones Urine Blood Urine Nitrite Urine Bilirubin Urine Urobilinogen Ur Leukocyte Esterase Urine Glucose Stool Campylobacter PCR Stl C.difficile Tox PCR Stool Salmonella PCR Stool Shigella PCR Urine Opiates Screen Urine Methadone Screen Ur Barbiturates Screen Ur Tricyclics Screen Ur Amphetamines Screen U Benzodiazepines Scrn Urine Cocaine Screen Ur THC Screen COVID-19 PCR Nasopharyn COVID-19 PCR Shiga Toxin (PCR) Path Cons Comment Ref Test Perform Site 06/24/20 06/24/20 06/24/20 10:30 10:30 13:00 WBC RBC Hgb Hct MCV MCH MCHC RDW Plt Count MPV Immature Gran % Neutrophils % Lymphocytes % Monocytes % Eosinophils % Basophils % Nucleated RBC % Absolute Neutrophils Absolute Lymphocytes Absolute Monocytes Absolute Eosinophils Absolute Basophils RBC Morphology Hypochromasia Poikilocytosis Microcytosis Ovalocytes D-Dimer 525 H Sodium Potassium Chloride Carbon Dioxide Anion Gap BUN Creatinine Estimated GFR/1.73 m2 Glucose Calcium Magnesium Total Bilirubin AST ALT Alkaline Phosphatase Troponin I Total Protein Albumin Lipase TSH Serum HCG, Qual Negative Urine Color Yellow Urine Clarity Clear Urine pH 7.5 Ur Specific [place] 1.015 Urine Protein Negative Urine Ketones Negative Urine Blood Negative Urine Nitrite Negative Urine Bilirubin Negative Urine Urobilinogen 0.2 Ur Leukocyte Esterase Negative Urine Glucose Negative Stool Campylobacter PCR Stl C.difficile Tox PCR Stool Salmonella PCR Stool Shigella PCR Urine Opiates Screen Urine Methadone Screen Ur Barbiturates Screen Ur Tricyclics Screen Ur Amphetamines Screen U Benzodiazepines Scrn Urine Cocaine Screen Ur THC Screen COVID-19 PCR Nasopharyn COVID-19 PCR Shiga Toxin (PCR) Path Cons Comment Ref Test Perform Site 06/24/20 06/24/20 06/24/20 13:00 14:45 15:40 WBC RBC Hgb 7.5 L Hct 26.8 L MCV MCH MCHC RDW Plt Count MPV Immature Gran % Neutrophils % Lymphocytes % Monocytes % Eosinophils % Basophils % Nucleated RBC % Absolute Neutrophils Absolute Lymphocytes Absolute Monocytes Absolute Eosinophils Absolute Basophils RBC Morphology Hypochromasia Poikilocytosis Microcytosis Ovalocytes D-Dimer Sodium Potassium Chloride Carbon Dioxide Anion Gap BUN Creatinine Estimated GFR/1.73 m2 Glucose Calcium Magnesium Total Bilirubin AST ALT Alkaline Phosphatase Troponin I Total Protein Albumin Lipase TSH Serum HCG, Qual Urine Color Urine Clarity Urine pH Ur Specific [place] Urine Protein Urine Ketones Urine Blood Urine Nitrite Urine Bilirubin Urine Urobilinogen Ur Leukocyte Esterase Urine Glucose Stool Campylobacter PCR Stl C.difficile Tox PCR Stool Salmonella PCR Stool Shigella PCR Urine Opiates Screen Negative Urine Methadone Screen Negative Ur Barbiturates Screen Negative Ur Tricyclics Screen Negative Ur Amphetamines Screen Negative U Benzodiazepines Scrn Negative Urine Cocaine Screen Negative Ur THC Screen Negative COVID-19 PCR Negative Nasopharyn COVID-19 PCR Not Applicable Shiga Toxin (PCR) Path Cons Comment Ref Test Perform Site [place] [facility] 06/25/20 06/25/20 06/25/20 06:25 06:25 08:45 WBC 4.28 L D RBC 4.01 Hgb 7.3 L Hct 25.6 L MCV 63.8 L MCH 18.2 L MCHC 28.5 L RDW 17.1 H Plt Count 552 H MPV 8.2 Immature Gran % 0.5 Neutrophils % 65.1 Lymphocytes % 17.1 Monocytes % 14.5 Eosinophils % 1.9 Basophils % 0.9 Nucleated RBC % 0 Absolute Neutrophils 2.79 Absolute Lymphocytes 0.73 L Absolute Monocytes 0.62 Absolute Eosinophils 0.08 Absolute Basophils 0.04 RBC Morphology Hypochromasia Poikilocytosis Microcytosis Ovalocytes D-Dimer Sodium 136 Potassium 3.4 L Chloride 101 Carbon Dioxide 25.7 Anion Gap 9.3 BUN 7 Creatinine 0.59 Estimated GFR/1.73 m2 >= 60.00 Glucose 88 Calcium 7.9 L Magnesium Total Bilirubin AST ALT Alkaline Phosphatase Troponin I Total Protein Albumin Lipase TSH Serum HCG, Qual Urine Color Urine Clarity Urine pH Ur Specific [place] Urine Protein Urine Ketones Urine Blood Urine Nitrite Urine Bilirubin Urine Urobilinogen Ur Leukocyte Esterase Urine Glucose Stool Campylobacter PCR Stl C.difficile Tox PCR Cancelled Stool Salmonella PCR Stool Shigella PCR Urine Opiates Screen Urine Methadone Screen Ur Barbiturates Screen Ur Tricyclics Screen Ur Amphetamines Screen U Benzodiazepines Scrn Urine Cocaine Screen Ur THC Screen COVID-19 PCR Nasopharyn COVID-19 PCR Shiga Toxin (PCR) Path Cons Comment Ref Test Perform Site 06/25/20 08:52 WBC RBC Hgb Hct MCV MCH MCHC RDW Plt Count MPV Immature Gran % Neutrophils % Lymphocytes % Monocytes % Eosinophils % Basophils % Nucleated RBC % Absolute Neutrophils Absolute Lymphocytes Absolute Monocytes Absolute Eosinophils Absolute Basophils RBC Morphology Hypochromasia Poikilocytosis Microcytosis Ovalocytes D-Dimer Sodium Potassium Chloride Carbon Dioxide Anion Gap BUN Creatinine Estimated GFR/1.73 m2 Glucose Calcium Magnesium Total Bilirubin AST ALT Alkaline Phosphatase Troponin I Total Protein Albumin Lipase TSH Serum HCG, Qual Urine Color Urine Clarity Urine pH Ur Specific [place] Urine Protein Urine Ketones Urine Blood Urine Nitrite Urine Bilirubin Urine Urobilinogen Ur Leukocyte Esterase Urine Glucose Stool Campylobacter PCR Cancelled Stl C.difficile Tox PCR Stool Salmonella PCR Cancelled Stool Shigella PCR Cancelled Urine Opiates Screen Urine Methadone Screen Ur Barbiturates Screen Ur Tricyclics Screen Ur Amphetamines Screen U Benzodiazepines Scrn Urine Cocaine Screen Ur THC Screen COVID-19 PCR Nasopharyn COVID-19 PCR Shiga Toxin (PCR) Cancelled Path Cons Comment Ref Test Perform Site
[2020-06-25 09:57] LABS: Iron 11 ug/dL (50-170); Total Iron Binding Capacity 216 ug/dL (250-450); Transferrin Sat 5 % (15-50)
[2020-06-25 10:11] LABS: Ferritin 15 ng/mL (8-252)
--- NOTE | 2020-06-25 10:37 | PDOC.CMIN ---
- If Service Date Differs Date of service: 06/25/20 Time of Service: 10:37 Care Management Initial Assess REASON FOR HOSPITALIZATION:: Colitis CODE STATUS:: Full Code
--- NOTE | 2020-06-25 11:15 | PHA.REVIEW ---
Pharmacy Admission Review - Admission Clinical Review (Last Reviewed 06/24/20 @ 20:24 by Blanca Kyle MD) Colitis (Acute) No Known Allergies Allergy (Unverified 06/24/20 10:13) Height 5 ft 10 in Weight 44.2 kg - Renal Dosing Renal Dosing: BUN 7 mg/dL (7-18) 06/25/20 06:25 Creatinine 0.59 mg/dL (0.55-1.02) 06/25/20 06:25 Medications needing adjustments: Reviewed - Anticoagulation Anticoagulation: Hgb 7.3 g/dL (11.2-15.7) L 06/25/20 06:25 Hct 25.6 % (36.0-46.0) L 06/25/20 06:25 Plt Count 552 10^3/uL (130-400) H 06/25/20 06:25 Creatinine 0.59 mg/dL (0.55-1.02) 06/25/20 06:25 DVT Prohphylaxis: N/A Therapeutic Anticoagulation: N/A - Opiate Usage Evaluate Pain Scale/Pains Meds: Reviewed Scheduled Bowel Reg ordered if on Opiates?: No (admitted for colitis/IBD) - Relevant Labs Sodium 136 mmol/L (136-145) 06/25/20 06:25 Potassium 3.4 mmol/L (3.5-5.1) L 06/25/20 06:25 Chloride 101 mmol/L (98-107) 06/25/20 06:25 Magnesium 2.0 mg/dL (1.8-2.4) 06/24/20 10:30 Electrolytes, C-Reactive P, ESR: Reviewed (Potassium 20meq PO x3 doses ordered) - DM Control DM Control: Glucose 88 mg/dL (74-106) 06/25/20 06:25 Insulin Dosing: Reviewed - Heart Failure/WV Heart Failure/WV: Troponin I < 0.05 ng/mL (<0.06) 06/24/20 10:30 EF%, VICENTA's, B-Blockers, Diuretics: N/A - BP Control BP Control: Blood Pressure 117/67 Blood Pressure 101/62 If elevated: Reviewed - Qtc Review If Elevated: Reviewed (QTc 426) - IV to PO Switch IV Medications: Reviewed - Home Meds Home Med List reviewed: Reviewed Relevent Home Meds Not ordered & why?: No home meds - Current meds Current Medication Order Review: Reviewed - Comments Comments/Follow Ups: colitis vs crohns vs celiac; no antibiotics given this is a chronic problem and pt is afebrile
--- NOTE | 2020-06-25 11:41 | DSE_ITS ---
Date of service: 06/25/20 Time of Service: 11:41 DS: Diagnosis Discharge Diagnosis (1) Colitis: Status: Acute (2) Anemia: Status: Chronic Discharge Plan Disposition Patient Disposition: HOME Condition: Fair Discharge Details Reason For Visit: COLITIS, WT LOSS, Admit Date/Time: 06/25/20 09:45 Admit Provider: Oseas Tubbs Attending Provider: Oseas Tubbs Primary Care Provider: Mesha,Local Hospital Course Hospital Course: This is a 20 y.o female with no primary care provider presents to [facility] ED after months of abdominal pain with about a 40 lb wt loss. She reports that her weight loss has been progressive over the last couple months due to severe crampy abdominal pain followed by a bowel movements. She endorses approx 15-20 stools a day sometimes relieving the pain and other times leaving her feeling as though she has to continue to go. Labs in the ED revealing for anemia, otherwise unremarkable. Imaging of CT reveals colitis from descending colon. Working diagnosis is likely crohns given anemia, 15-20 stools, abdominal pain. Surgery consulted and plans colonoscopy on . She will continue with potassium and iron supplementation. She wishes for discharge to home and outpatient colonoscopy. She will be given IV iron prior to discharge. She will follow up with surgery as outpatient. discussed with Dr Tubbs who is in agreement. Home Meds and New Rx's Prescriptions: New potassium chloride 20 mEq Packet 20 meq PO TID Qty: 60 RF: 0 ferrous sulfate 325 mg (65 mg iron) tablet,delayed release (DR/EC) 325 mg PO DAILY Qty: 30 RF: 0 Discharge Instructions Instructions: Colitis (ED) Additional Instructions: continue iron and potassium supplementation as directed. start bowel prep for colonoscopy on Wednesday as directed by surgeon. drink at least 6-8 glasses of water daily to stay hydrated, drink more if stooling more until NPO for Colonoscopy Stand Alone Forms: Nursing Discharge Form Referrals: Blanca Kyle MD [ [facility] STAFF PHYSICIAN] - (colonoscopy on - Arrive at the Day Surgery Unit at 0630 am. Day Surgery will call you tomorrow to confirm this time. ) Marisel Bess [[facility]] - 06/27/20 2:00 pm Activity:: Activity as Tolerated Equipment/Supplies:: No Equipment Needed Diet:: As Tolerated Discharge Orders Discharge Orders: Discharge Order (Routine); Ordered 06/25/20 Ordered By: Cheri Swift DS: Summary Status at Discharge Functional status at discharge: independent ambulation Overall status at discharge: patient is not back to baseline Mental Status: mental status grossly normal Speech and Movement: speech and movement normal Mood: congruent mood Affect: normal affect Exam Const General: cooperative, comfortable, no acute distress, frail appearing and ill appearing chronically Nutritional Appearance: cachectic Orientation: alert, awake and oriented x3 HENMT Head: normal to inspection, normocephalic and atraumatic Mouth: moist mucous membranes abnormal (dry) Teeth and gingiva: fair dentition Cardio Rate: tachycardic Rhythm: regular rhythm GI Inspection: normal to inspection Palpation: soft Auscultation: normal bowel sounds Skin General skin exam: no rashes or lesions noted and pallor Neuro General: patient alert, patient awake and patient oriented x3 Cranial Nerves: CN's II-XI intact bilaterally Cognition: normal cognition Motor: muscle tone normal throughout Extrem General: normal to inspection, full ROM and no pedal edema Psych Mental Status: mental status grossly normal Speech and Movement: speech and movement normal Mood: congruent mood Affect: normal affect DS: Data Vitals/I&O Vitals and I&O: Vital Signs Temperature 37.5 C 06/25/20 07:44 Temperature Source Tympanic 06/25/20 07:44 Pulse 107 H 06/25/20 07:44 Pulse Rhythm Regular 06/25/20 08:05 Pulse 113 H 06/24/20 14:01 Respiratory Rate 16 06/25/20 07:44 Respiratory Effort 06/25/20 08:05 Respiratory Depth Normal 06/25/20 08:05 Respiratory Pattern Normal 06/25/20 08:05 Blood Pressure 117/67 06/25/20 07:44 Blood Pressure Mean 78 06/24/20 14:00 Blood Pressure Position Sitting 06/24/20 10:03 Pulse Oximetry 99 06/25/20 07:44 Oxygen Delivery Method Room Air 06/25/20 07:44 Oxygen Flow Rate 0 06/25/20 07:44 Pain Level 0 06/25/20 07:44 Comment 06/24/20 23:40 Intake & Output 06/24/20 06/24/20 06/25/20 11:59 23:59 11:59 Intake Total 2000 / 2000 1000 / 1000 Output Total 75 / 75 Balance 1999 925 / 925 Weight 44.2 kg Intake: IV 1999 1000 / 1000 Output: Stool 75 / 75 Other: Comment pt took hat out of toilet, not measured this time. Stool Occult Blood Positive Stool Characteristics Liquid Voiding Methods Toilet Data Completed and Pending Labs on day of discharge: Labs from last 24 hours 06/25/20 06/25/20 06/25/20 08:52 08:45 08:45 WBC RBC Hgb Hct MCV MCH MCHC RDW Plt Count MPV Reticulocyte % (Auto) Immature Gran % Neutrophils % Lymphocytes % Monocytes % Eosinophils % Basophils % Nucleated RBC % Absolute Neutrophils Absolute Lymphocytes Absolute Monocytes Absolute Eosinophils Absolute Basophils D-Dimer Sodium Potassium Chloride Carbon Dioxide Anion Gap BUN Creatinine Estimated GFR/1.73 m2 Glucose Calcium Iron TIBC Transferrin % Sat Ferritin Serum HCG, Qual Urine Color Urine Clarity Urine pH Ur Specific Monarch Urine Protein Urine Ketones Urine Blood Urine Nitrite Urine Bilirubin Urine Urobilinogen Ur Leukocyte Esterase Urine Glucose Stool Campylobacter PCR Cancelled Stl C.difficile Tox PCR Cancelled Stool Salmonella PCR Cancelled Stool Shigella PCR Cancelled Urine Opiates Screen Urine Methadone Screen Ur Barbiturates Screen Ur Tricyclics Screen Ur Amphetamines Screen U Benzodiazepines Scrn Urine Cocaine Screen Ur THC Screen ALCA IgG Ab AMCA IgG Ab ACCA IgA Ab HLA-DQA1 HLA-DQB1 HLA Typ Interp Celiac HLA Celiac Gene Pairs COVID-19 PCR Nasopharyn COVID-19 PCR S.cerevisiae (Dwight)IgG Shiga Toxin (PCR) Cancelled Path Cons Comment Miscellaneous Test Pending Ref Test Perform Site 06/25/20 06/25/20 06/25/20 06:25 06:25 06:25 WBC RBC Hgb Hct MCV MCH MCHC RDW Plt Count MPV Reticulocyte % (Auto) 2.0 Immature Gran % Neutrophils % Lymphocytes % Monocytes % Eosinophils % Basophils % Nucleated RBC % Absolute Neutrophils Absolute Lymphocytes Absolute Monocytes Absolute Eosinophils Absolute Basophils D-Dimer Sodium Potassium Chloride Carbon Dioxide Anion Gap BUN Creatinine Estimated GFR/1.73 m2 Glucose Calcium Iron 11 L TIBC 216 L Transferrin % Sat 5 L Ferritin 15 Serum HCG, Qual Urine Color Urine Clarity Urine pH Ur Specific Monarch Urine Protein Urine Ketones Urine Blood Urine Nitrite Urine Bilirubin Urine Urobilinogen Ur Leukocyte Esterase Urine Glucose Stool Campylobacter PCR Stl C.difficile Tox PCR Stool Salmonella PCR Stool Shigella PCR Urine Opiates Screen Urine Methadone Screen Ur Barbiturates Screen Ur Tricyclics Screen Ur Amphetamines Screen U Benzodiazepines Scrn Urine Cocaine Screen Ur THC Screen ALCA IgG Ab AMCA IgG Ab ACCA IgA Ab HLA-DQA1 HLA-DQB1 HLA Typ Interp Celiac HLA Celiac Gene Pairs COVID-19 PCR Nasopharyn COVID-19 PCR S.cerevisiae (Dwight)IgG Shiga Toxin (PCR) Path Cons Comment Miscellaneous Test Ref Test Perform Site 06/25/20 06/25/20 06/24/20 06:25 06:25 15:40 WBC 4.28 L D RBC 4.01 Hgb 7.3 L 7.5 L Hct 25.6 L 26.8 L MCV 63.8 L MCH 18.2 L MCHC 28.5 L RDW 17.1 H Plt Count 552 H MPV 8.2 Reticulocyte % (Auto) Immature Gran % 0.5 Neutrophils % 65.1 Lymphocytes % 17.1 Monocytes % 14.5 Eosinophils % 1.9 Basophils % 0.9 Nucleated RBC % 0 Absolute Neutrophils 2.79 Absolute Lymphocytes 0.73 L Absolute Monocytes 0.62 Absolute Eosinophils 0.08 Absolute Basophils 0.04 D-Dimer Sodium 136 Potassium 3.4 L Chloride 101 Carbon Dioxide 25.7 Anion Gap 9.3 BUN 7 Creatinine 0.59 Estimated GFR/1.73 m2 >= 60.00 Glucose 88 Calcium 7.9 L Iron TIBC Transferrin % Sat Ferritin Serum HCG, Qual Urine Color Urine Clarity Urine pH Ur Specific Monarch Urine Protein Urine Ketones Urine Blood Urine Nitrite Urine Bilirubin Urine Urobilinogen Ur Leukocyte Esterase Urine Glucose Stool Campylobacter PCR Stl C.difficile Tox PCR Stool Salmonella PCR Stool Shigella PCR Urine Opiates Screen Urine Methadone Screen Ur Barbiturates Screen Ur Tricyclics Screen Ur Amphetamines Screen U Benzodiazepines Scrn Urine Cocaine Screen Ur THC Screen ALCA IgG Ab AMCA IgG Ab ACCA IgA Ab HLA-DQA1 HLA-DQB1 HLA Typ Interp Celiac HLA Celiac Gene Pairs COVID-19 PCR Nasopharyn COVID-19 PCR S.cerevisiae (Dwight)IgG Shiga Toxin (PCR) Path Cons Comment Miscellaneous Test Ref Test Perform Site 06/24/20 06/24/20 06/24/20 15:40 14:45 13:00 WBC RBC Hgb Hct MCV MCH MCHC RDW Plt Count MPV Reticulocyte % (Auto) Immature Gran % Neutrophils % Lymphocytes % Monocytes % Eosinophils % Basophils % Nucleated RBC % Absolute Neutrophils Absolute Lymphocytes Absolute Monocytes Absolute Eosinophils Absolute Basophils D-Dimer Sodium Potassium Chloride Carbon Dioxide Anion Gap BUN Creatinine Estimated GFR/1.73 m2 Glucose Calcium Iron TIBC Transferrin % Sat Ferritin Serum HCG, Qual Urine Color Urine Clarity Urine pH Ur Specific [place]arch Urine Protein Urine Ketones Urine Blood Urine Nitrite Urine Bilirubin Urine Urobilinogen Ur Leukocyte Esterase Urine Glucose Stool Campylobacter PCR Stl C.difficile Tox PCR Stool Salmonella PCR Stool Shigella PCR Urine Opiates Screen Negative Urine Methadone Screen Negative Ur Barbiturates Screen Negative Ur Tricyclics Screen Negative Ur Amphetamines Screen Negative U Benzodiazepines Scrn Negative Urine Cocaine Screen Negative Ur THC Screen Negative ALCA IgG Ab AMCA IgG Ab ACCA IgA Ab HLA-DQA1 Pending HLA-DQB1 Pending HLA Typ Interp Celiac Pending HLA Celiac Gene Pairs Pending COVID-19 PCR Negative Nasopharyn COVID-19 PCR Not Applicable S.cerevisiae (Dwight)IgG Shiga Toxin (PCR) Path Cons Comment Miscellaneous Test Ref Test Perform Site [facility] 06/24/20 06/24/20 06/24/20 13:00 10:30 10:30 WBC RBC Hgb Hct MCV MCH MCHC RDW Plt Count MPV Reticulocyte % (Auto) Immature Gran % Neutrophils % Lymphocytes % Monocytes % Eosinophils % Basophils % Nucleated RBC % Absolute Neutrophils Absolute Lymphocytes Absolute Monocytes Absolute Eosinophils Absolute Basophils D-Dimer Sodium Potassium Chloride Carbon Dioxide Anion Gap BUN Creatinine Estimated GFR/1.73 m2 Glucose Calcium Iron TIBC Transferrin % Sat Ferritin Serum HCG, Qual Negative Urine Color Yellow Urine Clarity Clear Urine pH 7.5 Ur Specific Monarch 1.015 Urine Protein Negative Urine Ketones Negative Urine Blood Negative Urine Nitrite Negative Urine Bilirubin Negative Urine Urobilinogen 0.2 Ur Leukocyte Esterase Negative Urine Glucose Negative Stool Campylobacter PCR Stl C.difficile Tox PCR Stool Salmonella PCR Stool Shigella PCR Urine Opiates Screen Urine Methadone Screen Ur Barbiturates Screen Ur Tricyclics Screen Ur Amphetamines Screen U Benzodiazepines Scrn Urine Cocaine Screen Ur THC Screen ALCA IgG Ab Pending AMCA IgG Ab Pending ACCA IgA Ab Pending HLA-DQA1 HLA-DQB1 HLA Typ Interp Celiac HLA Celiac Gene Pairs COVID-19 PCR Nasopharyn COVID-19 PCR S.cerevisiae (Dwight)IgG Pending Shiga Toxin (PCR) Path Cons Comment Miscellaneous Test Ref Test Perform Site 06/24/20 06/24/20 10:30 10:30 WBC RBC Hgb Hct MCV MCH MCHC RDW Plt Count MPV Reticulocyte % (Auto) Immature Gran % Neutrophils % Lymphocytes % Monocytes % Eosinophils % Basophils % Nucleated RBC % Absolute Neutrophils Absolute Lymphocytes Absolute Monocytes Absolute Eosinophils Absolute Basophils D-Dimer 525 H Sodium Potassium Chloride Carbon Dioxide Anion Gap BUN Creatinine Estimated GFR/1.73 m2 Glucose Calcium Iron TIBC Transferrin % Sat Ferritin Serum HCG, Qual Urine Color Urine Clarity Urine pH Ur Specific Monarch Urine Protein Urine Ketones Urine Blood Urine Nitrite Urine Bilirubin Urine Urobilinogen Ur Leukocyte Esterase Urine Glucose Stool Campylobacter PCR Stl C.difficile Tox PCR Stool Salmonella PCR Stool Shigella PCR Urine Opiates Screen Urine Methadone Screen Ur Barbiturates Screen Ur Tricyclics Screen Ur Amphetamines Screen U Benzodiazepines Scrn Urine Cocaine Screen Ur THC Screen ALCA IgG Ab AMCA IgG Ab ACCA IgA Ab HLA-DQA1 HLA-DQB1 HLA Typ Interp Celiac HLA Celiac Gene Pairs COVID-19 PCR Nasopharyn COVID-19 PCR S.cerevisiae (Dwight)IgG Shiga Toxin (PCR) Path Cons Comment Miscellaneous Test Ref Test Perform Site COUNTS INCLUDE 234 BEDS AT THE [facility] Family History Sister Diabetes Mother Celiac disease Multiple sclerosis Social History Smoking/Tobacco Use Status: Never Alcohol Intake: never Drug use: Never Substance use type: does not use Do you feel safe at home: Yes Do you feel safe in your relationship?: Yes
--- NOTE | 2020-06-25 11:45 | PGE_ITS ---
Date of Service Date of service: 06/25/20 Time of Service: 11:46 Assessment and Plan Assessment and plan (1) Colitis: Status: Acute Assessment and plan: C diff is negative Patient feels well enough to go home. Will plan for colonoscopy on as outpatient. Prep instructions discussed. Advised to take daily iron supplement and Ensure. Subjective Subjective Interval history since last seen: Denies significant pain. Occasional cramping. Not sure if the Bentyl has made a difference. Continues to have loose stool. Feels hungry. Denies dizziness with ambulation. Exam Narrative Exam Narrative: Pale, no distress Abdomen soft, nontender Objective Last Vital Signs Temp 99.5 F 06/25/20 07:44 Pulse 107 H 06/25/20 07:44 Resp 16 06/25/20 07:44 BP 117/67 06/25/20 07:44 Pulse Ox 99 06/25/20 07:44 Laboratory Results - last 24 hr 06/24/20 06/24/20 06/24/20 10:30 10:30 13:00 WBC RBC Hgb Hct MCV MCH MCHC RDW Plt Count MPV Reticulocyte % (Auto) Immature Gran % Neutrophils % Lymphocytes % Monocytes % Eosinophils % Basophils % Nucleated RBC % Absolute Neutrophils Absolute Lymphocytes Absolute Monocytes Absolute Eosinophils Absolute Basophils Sodium Potassium Chloride Carbon Dioxide Anion Gap BUN Creatinine Estimated GFR/1.73 m2 Glucose Calcium Iron TIBC Transferrin % Sat Ferritin Serum HCG, Qual Negative Urine Color Yellow Urine Clarity Clear Urine pH 7.5 Ur Specific [place] 1.015 Urine Protein Negative Urine Ketones Negative Urine Blood Negative Urine Nitrite Negative Urine Bilirubin Negative Urine Urobilinogen 0.2 Ur Leukocyte Esterase Negative Urine Glucose Negative Stool Campylobacter PCR Stl C.difficile Tox PCR Stool Salmonella PCR Stool Shigella PCR Urine Opiates Screen Urine Methadone Screen Ur Barbiturates Screen Ur Tricyclics Screen Ur Amphetamines Screen U Benzodiazepines Scrn Urine Cocaine Screen Ur THC Screen COVID-19 PCR Nasopharyn COVID-19 PCR Shiga Toxin (PCR) Path Cons Comment Ref Test Perform Site 06/24/20 06/24/20 06/24/20 13:00 14:45 15:40 WBC RBC Hgb 7.5 L Hct 26.8 L MCV MCH MCHC RDW Plt Count MPV Reticulocyte % (Auto) Immature Gran % Neutrophils % Lymphocytes % Monocytes % Eosinophils % Basophils % Nucleated RBC % Absolute Neutrophils Absolute Lymphocytes Absolute Monocytes Absolute Eosinophils Absolute Basophils Sodium Potassium Chloride Carbon Dioxide Anion Gap BUN Creatinine Estimated GFR/1.73 m2 Glucose Calcium Iron TIBC Transferrin % Sat Ferritin Serum HCG, Qual Urine Color Urine Clarity Urine pH Ur Specific [place] Urine Protein Urine Ketones Urine Blood Urine Nitrite Urine Bilirubin Urine Urobilinogen Ur Leukocyte Esterase Urine Glucose Stool Campylobacter PCR Stl C.difficile Tox PCR Stool Salmonella PCR Stool Shigella PCR Urine Opiates Screen Negative Urine Methadone Screen Negative Ur Barbiturates Screen Negative Ur Tricyclics Screen Negative Ur Amphetamines Screen Negative U Benzodiazepines Scrn Negative Urine Cocaine Screen Negative Ur THC Screen Negative COVID-19 PCR Negative Nasopharyn COVID-19 PCR Not Applicable Shiga Toxin (PCR) Path Cons Comment Ref Test Perform Site [place] [facility] lab 06/25/20 06/25/20 06/25/20 06:25 06:25 06:25 WBC 4.28 L D RBC 4.01 Hgb 7.3 L Hct 25.6 L MCV 63.8 L MCH 18.2 L MCHC 28.5 L RDW 17.1 H Plt Count 552 H MPV 8.2 Reticulocyte % (Auto) Immature Gran % 0.5 Neutrophils % 65.1 Lymphocytes % 17.1 Monocytes % 14.5 Eosinophils % 1.9 Basophils % 0.9 Nucleated RBC % 0 Absolute Neutrophils 2.79 Absolute Lymphocytes 0.73 L Absolute Monocytes 0.62 Absolute Eosinophils 0.08 Absolute Basophils 0.04 Sodium 136 Potassium 3.4 L Chloride 101 Carbon Dioxide 25.7 Anion Gap 9.3 BUN 7 Creatinine 0.59 Estimated GFR/1.73 m2 >= 60.00 Glucose 88 Calcium 7.9 L Iron 11 L TIBC 216 L Transferrin % Sat 5 L Ferritin Serum HCG, Qual Urine Color Urine Clarity Urine pH Ur Specific [place] Urine Protein Urine Ketones Urine Blood Urine Nitrite Urine Bilirubin Urine Urobilinogen Ur Leukocyte Esterase Urine Glucose Stool Campylobacter PCR Stl C.difficile Tox PCR Stool Salmonella PCR Stool Shigella PCR Urine Opiates Screen Urine Methadone Screen Ur Barbiturates Screen Ur Tricyclics Screen Ur Amphetamines Screen U Benzodiazepines Scrn Urine Cocaine Screen Ur THC Screen COVID-19 PCR Nasopharyn COVID-19 PCR Shiga Toxin (PCR) Path Cons Comment Ref Test Perform Site 06/25/20 06/25/20 06/25/20 06:25 06:25 08:45 WBC RBC Hgb Hct MCV MCH MCHC RDW Plt Count MPV Reticulocyte % (Auto) 2.0 Immature Gran % Neutrophils % Lymphocytes % Monocytes % Eosinophils % Basophils % Nucleated RBC % Absolute Neutrophils Absolute Lymphocytes Absolute Monocytes Absolute Eosinophils Absolute Basophils Sodium Potassium Chloride Carbon Dioxide Anion Gap BUN Creatinine Estimated GFR/1.73 m2 Glucose Calcium Iron TIBC Transferrin % Sat Ferritin 15 Serum HCG, Qual Urine Color Urine Clarity Urine pH Ur Specific [place] Urine Protein Urine Ketones Urine Blood Urine Nitrite Urine Bilirubin Urine Urobilinogen Ur Leukocyte Esterase Urine Glucose Stool Campylobacter PCR Stl C.difficile Tox PCR Cancelled Stool Salmonella PCR Stool Shigella PCR Urine Opiates Screen Urine Methadone Screen Ur Barbiturates Screen Ur Tricyclics Screen Ur Amphetamines Screen U Benzodiazepines Scrn Urine Cocaine Screen Ur THC Screen COVID-19 PCR Nasopharyn COVID-19 PCR Shiga Toxin (PCR) Path Cons Comment Ref Test Perform Site 06/25/20 08:52 WBC RBC Hgb Hct MCV MCH MCHC RDW Plt Count MPV Reticulocyte % (Auto) Immature Gran % Neutrophils % Lymphocytes % Monocytes % Eosinophils % Basophils % Nucleated RBC % Absolute Neutrophils Absolute Lymphocytes Absolute Monocytes Absolute Eosinophils Absolute Basophils Sodium Potassium Chloride Carbon Dioxide Anion Gap BUN Creatinine Estimated GFR/1.73 m2 Glucose Calcium Iron TIBC Transferrin % Sat Ferritin Serum HCG, Qual Urine Color Urine Clarity Urine pH Ur Specific [place] Urine Protein Urine Ketones Urine Blood Urine Nitrite Urine Bilirubin Urine Urobilinogen Ur Leukocyte Esterase Urine Glucose Stool Campylobacter PCR Cancelled Stl C.difficile Tox PCR Stool Salmonella PCR Cancelled Stool Shigella PCR Cancelled Urine Opiates Screen Urine Methadone Screen Ur Barbiturates Screen Ur Tricyclics Screen Ur Amphetamines Screen U Benzodiazepines Scrn Urine Cocaine Screen Ur THC Screen COVID-19 PCR Nasopharyn COVID-19 PCR Shiga Toxin (PCR) Cancelled Path Cons Comment Ref Test Perform Site
--- NOTE | 2020-06-25 12:42 | PDOC.CMDIS ---
- If Service Date Differs Date of service: 06/25/20 Time of Service: 12:42 LACE Index Scoring Tool - Questions: Length of Stay (in days): 1 Acuity (Admit via E.D.?): Yes Care Management Discharge Reason for Hospitalization: Colitis, weight loss Discharge Plan: Saranya is in the room with her boyfriend Maryan at time of visit. She describes a weight loss over one year she states at first it was about 1-2 pounds a week. She states she became concerned when the weight loss did not stop. She does not have insurance or primary care provider. GERARDO contacted [facility] and obtainined an appointment for 07/02/20 her new primary care paperwork has been completed and Medicaid is pending. She will follow up with this week for a colonscopy. GERAROD spoke to the chronic lawn care worker at [facility] and she will also refer her to [facility] [facility] at the practice. Saranya will transport home via private car with boyfriend at the time of discharge. Patient/Family Education Needs: Discharge education, limitations and follow up plan of care including ask me three and new primary care provider and appointment information.
[2020-06-25] MEDS: IRON SUCROSE COMPLEX 200 MG in Normal Saline 100 ML 440 MG IVPB (12:47)
[2020-06-28 11:53] LABS: Celiac gene pairs present? Yes
[2020-07-01 15:16] LABS: Misc Referral (VDH) See Comments
[2020-07-10 11:12] LABS: ACCA 19 units (0-90); ALCA 46 units (0-60); gASCA 55 units (0-50)
[2020-07-10 11:14] LABS: AMCA 28 units (0-100)
== END 2020-06-25 14:15 | disposition home or self-care (01) | DRG 386 ==
LOC: ER 14:19 → MS 14:55
PROVIDERS: Nurse Practitioner Family; Admitting Provider Internal Medicine; Emergency Provider Physician Assistant; Visit Provider Internal Medicine
DX: K50.10 Crohn's disease of large intestine without complications (principal); Z68.1 Body mass index [BMI] 19.9 or less, adult; D64.9 Anemia, unspecified; R63.4 Abnormal weight loss
CPT/HCPCS: 36415; 71275; 74177; 80048; 80053; 80307; 81025; 83516; 83690; 86671; 86816; 87493; 87505; 93005; 96360; 96361; 99217; 99220; 99231; 99253; 99291; U0003; 81003; 82272; 82728; 83540; 83550; 83735; 84443; 84484; 84703; 85014; 85018; 85025; 85045; 85379; 87324; 93010; 99238; G0378; J1756; J3490

== ENCOUNTER 2020-06-27 06:20 | Day surgery (SDC) | payer MEDICAID, SELFPAY ==
--- NOTE | 2020-06-25 16:13 | CHAPLAIN ---
I had a short visit with Saranya this morning, explained my role and offered support. She was discharged later in the day.
[2020-06-27 06:10] VITALS: BP 114/70; PULSE 119; RESP 14; TEMP 37.5; O2SAT 100
[2020-06-27] MEDS: Lactated Ringers 1,000 ML 80 ML IV (06:58)
--- NOTE | 2020-06-27 07:23 | W.PM.DSUDISC ---
Discharge Plan Disposition Patient Disposition: HOME Condition: Good Discharge Details Reason For Visit: Flexible sigmoidoscopy with biopsies Attending Provider: Blanca Kyle Primary Care Provider: Mesha,Local Home Meds and New Rx's Prescriptions: New prednisone 20 mg tablet 40 mg PO DAILY Qty: 30 RF: 0 Continued potassium chloride 20 mEq Packet 20 meq PO TID Qty: 60 RF: 0 ferrous sulfate 325 mg (65 mg iron) tablet,delayed release (DR/EC) 325 mg PO DAILY Qty: 30 RF: 0 Discharge Instructions Additional Instructions: Findings: Your colon was very inflamed from the rectal region to the descending colon. Follow up: My office will contact you with biopsy results. Please call if you develop: fevers >101.5 Nausea or Vomiting Abdominal pain that is not transient DAY SURGERY UNIT POST COLONOSCOPY INSTRUCTIONS 1. Because there will be medication in your system for the next 24 hours, you may feel a little sleepy. Your coordination will be affected. Therefore: a. Do not drive or operate dangerous equipment for 24 hours. b. Do not drink alcohol beverages for 24 hours (not even beer). c. Plan to go home and rest for the day. 2. Generally there are no restrictions on your activity after a day or so has gone by, but you may feel a bit fatigued for a few days. 3 After you arrive home you may have a light meal and return to a normal diet as you can tolerate it without feeling sick to your stomach. 4. After surgery, you may feel pain or discomfort. This should be only transient, but if it persists please contact your doctor. 5. If there are any questions regarding the findings of your procedure, please feel free to contact your doctor. 6. If you are unable to contact your doctor with a problem, contact the hospital at [phone]. 7. Continue all your regular medications unless directed otherwise. I understand the above instructions and have no questions. Signature of Patient or Responsible Adult Escort Date/Time Name of Responsible Adult Escort Signature of Nurse Date/Time Activity:: Activity as Tolerated Diet:: As Tolerated Discharge Orders Discharge Orders: Discharge Order (Routine); Ordered 06/27/20 Ordered By: Blanca Kyle DS: Diagnosis Discharge Diagnosis (1) Colitis: Status: Acute
--- NOTE | 2020-06-27 07:25 | W.COLOREPORT ---
Date of service: 06/27/20 Time of Service: 08:48 Colonoscopy Report Date of procedure: 06/27/20 Pre-op diagnosis general: Colitis Procedure: Colonoscopy Surgeon: Blanca Kyle Anesthesia proc note operative: MAC Indications: This 20 year old woman presented with several months of diarrhea, weight loss, crampy abdominal pain. CT showed inflammation in the descending colon and rectum. Procedure Description: The patient was placed in the left Cross position. Propofol was titrated to sedation. Digital rectal examination revealed irregularity and fullness of the rectal mucosa. The scope was inserted and advanced to about 40 cm. The patient's prep was poor and there is some solid stool proximal to this point. There was continuous inflammation from 40 cm to the rectum. I did not feel comfortable advancing the scope any further due to risks of traumatizing the colon. Proximal to 40 cm the bowel did not appear inflamed. Biopsies were taken of the normal appearing mucosa and labeled as descending colon. The more distal colon was circumferentially inflamed to a severe level. There is narrowing of the lumen and evidence of ulcerations. The tissue was very friable and bled easily. Biopsies were taken from the sigmoid colon in 2 locations and from the rectum. I could not retroflex. She tolerated the procedure well and was stable to recovery. I will start her on prednisone while awaiting pathology results.
--- NOTE | 2020-06-27 07:45 | BOWEL_PTH ---
PATIENT: Saranya Landaverde LOC: [facility] U#:[id number] AGE/SX: 20/F ROOM: RE06/27/[address]: Blanca Kyle MD : 2000 BED: DIS: 06/27/2020 SPEC #: [id number] RECD: 06/27/20 12:54 STATUS: TYE REQ #: [id number] [place]: 06/27/20 07:[address]: Blanca Kyle DEPT: Surgical Specimen RECD BY: Ivette Guido ENTERED: 06/27/20 12:56 SP TYPE: Bowel OTHR DR: No Local Tissues: 1 - BIOPSY BOWEL 2 - BIOPSY BOWEL 3 - BIOPSY BOWEL Procedures: GROSS AND MICRO LEVEL 4 Comments: [id number]
[2020-06-27] MEDS: Lactated Ringers 1,000 ML 100 ML IV (08:00)
[2020-06-27 08:27] VITALS: BP 119/72; PULSE 100; RESP 16; TEMP 36.5; O2SAT 100
[2020-06-27 08:35] VITALS: BP 113/68; PULSE 111; RESP 16; TEMP 36.6; O2SAT 98
[2020-06-27] MEDS: Ketorolac 30 MG/ML VIAL IVP (08:58)
[2020-06-27] MEDS: Normal Saline Flush 10 ML SYR IV (08:58)
[2020-06-27] MEDS: Hyoscyamine 0.125 MG SL/ORAL/CHEW PO (08:58)
[2020-06-27 09:03] VITALS: BP 118/77; PULSE 99; RESP 16; TEMP 36.5; O2SAT 99
[2020-06-27 09:27] VITALS: BP 125/75; PULSE 101; RESP 14; TEMP 36.5; O2SAT 99
== END 2020-06-27 10:20 | disposition home or self-care (01) ==
PROVIDERS: Visit Provider Surgery
PROC: 0DJD8ZZ Inspection of Lower Intestinal Tract, Via Natural or Artificial Opening Endoscopic (ICD-10-PCS; CPT 45378; principal; 2020-06-27 07:30)
DX: R19.7 Diarrhea, unspecified (principal); R63.4 Abnormal weight loss; Z68.1 Body mass index [BMI] 19.9 or less, adult; D64.9 Anemia, unspecified; K52.9 Noninfective gastroenteritis and colitis, unspecified
CPT/HCPCS: 45380; 88305; J1885; J2001; J3490

== ENCOUNTER 2020-11-20 11:30 | Outpatient (RCR) | payer MEDICAID, SELFPAY ==
[2020-11-20] VITALS (7 sets, daily range): BP systolic 108–125; BP diastolic 69–88; PULSE 96–102; RESP 15–18; TEMP 36.6–37.7; O2SAT 98–100
[2020-11-20] MEDS: Acetaminophen 325 MG TAB 650 MG PO (11:45)
[2020-11-20] MEDS: Loratidine 10 MG TAB PO (11:46)
[2020-11-20] MEDS: Normal Saline Flush 10 ML SYR IVP (12:11)
[2020-11-20] MEDS: inFLIXimab 300 MG in Normal Saline 250 ML 125 MG IVPB (12:11)
[2020-11-24 22:40] LABS: Infliximab 2.5 mcg/mL (<=5.0)
== END 2020-12-04 23:59 | disposition home or self-care (01) ==
LOC: INF 11:30
PROVIDERS: Internal Medicine Gastroenterology; Visit Provider Internal Medicine
DX: K51.818 Other ulcerative colitis with other complication (principal)
CPT/HCPCS: 36415; 82397; 96365; 96366; 96413; 96415; J1745

== ENCOUNTER 2024-06-21 03:21 | Outpatient (CLI) | payer MEDICAID, SELFPAY | END 2024-06-21 03:22 | disposition home or self-care (01) | LOC: LBO 03:21 | PROVIDERS: Visit Provider Advanced Practice Midwife | DX: Z34.91 Encounter for supervision of normal pregnancy, unspecified, first trimester (principal) | CPT/HCPCS: 85025 ==

== ENCOUNTER 2024-06-21 05:02 | Outpatient (CLI) | payer MEDICAID, SELFPAY ==
[2024-06-21 12:14] LABS: Panorama Kit Sent via Fed Ex
[2024-06-21 12:48] LABS: Abs Immature Grans 0.03 10^3/uL (0.0-0.06); Absolute Basophil Count 0.03 10^3/uL (0.0-0.2); Absolute Eosinophil Count 0.04 10^3/uL (0.0-0.7); Absolute Lymphocyte Count 1.37 10^3/uL (1.2-3.4); Absolute Monocyte Count 0.38 10^3/uL (0.1-0.8); Basophils % 0.5 %; Eosinophils % 0.6 %; HCT 35.7 % (36.0-46.0); HGB 12.5 g/dL (11.2-15.7); Immature Grans % 0.5 %; Lymphocytes % 21.2 %; MCH 30.2 pg (27.0-33.0); MCV 86 fL (80-95); MPV 10.6 fL (8.0-11.0); Monocytes % 5.9 %; Neutrophils % 71.3 %; Platelet Count 221 10^3/uL (130-400); RBC 4.14 10^6/uL (3.93-5.22); RDW 13.2 % (11.7-14.6); RDW-SD 41.1 fL; WBC 6.45 10^3/uL (4.4-10.8)
[2024-06-21 23:04] LABS: Hepatitis B Surface Ag Negative (Negative)
[2024-06-21 23:37] LABS: HIV-1/2 Ag & Ab Screen Negative (Negative)
[2024-06-21 23:42] LABS: Hepatitis C Ab w Rflx HCV PCR Negative (Negative)
[2024-06-22 10:33] LABS: Varicella IgG Antibody Positive (See Note)
[2024-06-22 10:35] LABS: Rubella IgG Ab (UVM) Positive (See Note)
[2024-06-23 23:38] LABS: Syphilis IgG w/Reflex Nonreactive (Nonreactive)
[2024-07-04 14:59] LABS: Result Summary NEGATIVE; Specimen WB Whole Blood
== END 2024-06-21 05:03 | disposition home or self-care (01) ==
LOC: LBO 05:02
PROVIDERS: Visit Provider Advanced Practice Midwife
DX: Z34.91 Encounter for supervision of normal pregnancy, unspecified, first trimester (principal)
CPT/HCPCS: 36415; 81220; 81222; 86787; 86803; 86850; 86900; 86901; 87340; 87389; 85025; 86762; 86780

== ENCOUNTER 2024-06-21 10:49 | Outpatient (REF) | payer MEDICAID, SELFPAY ==
[2024-06-21 16:20] LABS: *AMPHETAMINES SCREEN URINE Negative (Negative); *BARBITURATES SCREEN URINE Negative (Negative); *BENZODIAZEPINES SCREEN URINE Negative (Negative); Cannabinoids THC Negative (Negative); Cocaine Screen,Urine Negative (Negative); METHADONE URINE SCREEN Negative (Negative); OPIATES URINE SCREEN Negative (Negative)
[2024-06-21 16:29] LABS: Tricyclic Antidepressants Negative (Negative)
[2024-06-22 11:46] LABS: Fentanyl Scr w/Rfx Confirm Negative ng/mL (<1)
[2024-06-22 12:52] LABS: Chlamydia Result Negative (Negative); GC Result Negative (Negative)
[2024-06-27 08:16] LABS: Buprenorphine Negative ng/mL (Cutoff: 5.0); Norbuprenorphine Negative ng/mL (Cutoff: 2.5)
== END 2024-06-21 10:50 | disposition home or self-care (01) ==
LOC: LBN 10:49
PROVIDERS: Visit Provider Advanced Practice Midwife
DX: Z34.91 Encounter for supervision of normal pregnancy, unspecified, first trimester (principal)
CPT/HCPCS: 80307; 80348; 87491; 87591; 87086

== ENCOUNTER 2024-07-18 04:37 | Outpatient (CLI) | payer MEDICAID, SELFPAY ==
[2024-07-18 11:44] LABS: HCT 34.3 % (36.0-46.0); HGB 11.7 g/dL (11.2-15.7); MCH 29.8 pg (27.0-33.0); MCHC 34.1 % (32.0-36.0); MCV 87 fL (80-95); MPV 9.6 fL (8.0-11.0); Platelet Count 186 10^3/uL (130-400); RBC 3.93 10^6/uL (3.93-5.22); RDW 13.8 % (11.7-14.6); RDW-SD 43.9 fL; WBC 6.68 10^3/uL (4.4-10.8)
[2024-07-20 12:26] LABS: AFP 41.2 ng/mL; Cigarette smoking status non-Smoker; GA used in risk estimate Scan estimate; IVF Pregnancy No; Initial or repeat testing Initial testing; Insulin dependent diabetes No; Maternal Weight 154 lbs; Number of Fetuses 1; Physician Phone Number 802-748-7300; Prev Pregnancy w/NTD No
[2024-07-24 15:25] LABS: Recalculated Maternal Serum Sc See Comments
[2024-07-24 15:39] LABS: INTERPRETATION See Comments
== END 2024-07-18 04:38 | disposition home or self-care (01) ==
LOC: LBO 04:37
PROVIDERS: Obstetrics & Gynecology; Visit Provider Advanced Practice Midwife
DX: Z34.91 Encounter for supervision of normal pregnancy, unspecified, first trimester (principal)
CPT/HCPCS: 36415; 85027; 82105

== ENCOUNTER 2024-10-17 03:23 | Outpatient (CLI) | payer MEDICAID, SELFPAY ==
[2024-10-17 11:20] LABS: Abs Immature Grans 0.04 10^3/uL (0.0-0.06); Absolute Basophil Count 0.02 10^3/uL (0.0-0.2); Absolute Eosinophil Count 0.07 10^3/uL (0.0-0.7); Absolute Lymphocyte Count 1.16 10^3/uL (1.2-3.4); Absolute Monocyte Count 0.69 10^3/uL (0.1-0.8); Absolute Neutrophil Count 6.64 10^3/uL (1.2-6.7); Basophils % 0.2 %; Eosinophils % 0.8 %; HCT 34.9 % (36.0-46.0); HGB 11.5 g/dL (11.2-15.7); Immature Grans % 0.5 %; Lymphocytes % 13.5 %; MCV 91 fL (80-95); MPV 10.4 fL (8.0-11.0); Platelet Count 194 10^3/uL (130-400); RBC 3.83 10^6/uL (3.93-5.22); RDW 13.3 % (11.7-14.6); RDW-SD 44.1 fL; WBC 8.62 10^3/uL (4.4-10.8)
[2024-10-17 11:43] LABS: ALT 25 U/L (14-59); AST 17 U/L (15-37); Albumin 2.7 g/dL (3.4-5.0); Alkaline Phosphatase 75 U/L (46-116); Anion Gap 5.4 mmol/L (3-11); BUN 8 mg/dL (7-18); CO2 27.6 mmol/L (21.0-32.0); CREATININE 0.5 mg/dL (0.55-1.02); Calcium 8.6 mg/dL (8.5-10.1); Chloride 105 mmol/L (98-107); Glucose 102 mg/dL (74-106); Potassium 3.8 mmol/L (3.5-5.1); Sodium 138 mmol/L (136-145); Total Protein 6.4 g/dL (6.4-8.2)
[2024-10-17 11:45] LABS: Glucose,1 Hr (Glucola) 102 mg/dL (80-140)
== END 2024-10-17 03:24 | disposition home or self-care (01) ==
LOC: LBO 03:23
PROVIDERS: Visit Provider Obstetrics & Gynecology
DX: Z34.92 Encounter for supervision of normal pregnancy, unspecified, second trimester (principal)
CPT/HCPCS: 36415; 80053; 82950; 85025

== ENCOUNTER 2024-10-17 10:25 | Outpatient (REF) | payer MEDICAID, SELFPAY ==
[2024-10-17 12:00] LABS: COMMENT (LAB VIEW ONLY) 171.58 mg/dL; PROTEIN 23.6 mg/dL; Prot/Crea Ur Ratio 0.13
[2024-10-17 12:11] LABS: *AMPHETAMINES SCREEN URINE Negative (Negative); *BARBITURATES SCREEN URINE Negative (Negative); *BENZODIAZEPINES SCREEN URINE Negative (Negative); Cannabinoids THC Negative (Negative); Cocaine Screen,Urine Negative (Negative); METHADONE URINE SCREEN Negative (Negative); OPIATES URINE SCREEN Negative (Negative)
[2024-10-17 12:13] LABS: Tricyclic Antidepressants Negative (Negative)
[2024-10-18 11:22] LABS: Fentanyl Scr w/Rfx Confirm Negative ng/mL (<1)
[2024-10-21 12:06] LABS: Buprenorphine Negative ng/mL (Cutoff: 5.0); Norbuprenorphine Negative ng/mL (Cutoff: 2.5)
== END 2024-10-17 10:26 | disposition home or self-care (01) ==
LOC: LBN 10:25
PROVIDERS: Visit Provider Obstetrics & Gynecology
DX: Z34.93 Encounter for supervision of normal pregnancy, unspecified, third trimester (principal); Z3A.28 28 weeks gestation of pregnancy
CPT/HCPCS: 80307; 80348; 82565; 84156

== ENCOUNTER 2024-11-14 02:11 | Outpatient (CLI) | payer MEDICAID, SELFPAY ==
--- NOTE | 2024-11-14 07:15 | DI.US_ITS ---
Exam(s) US OB JONO WEIGHT EXAM: US OB JONO WEIGHT CLINICAL HISTORY: Growth and JONO at 32 weeks,z34.90,. TECHNIQUE: Transabdominal obstetrical ultrasound performed. COMPARISON: No exams were available for comparison FINDINGS: Number of fetuses: 1 position: CEPHALIC Placental location: There is a grade 2 posterior placenta. No evidence of previa. BIOMETRIC DATA: BPD: 8.15cm, 32weeks 5days HC: 30.17cm, 33weeks 3days AC: 29.73cm, 33weeks 5days FL: 6.54cm, 33weeks 5days EFW: 2,230.93g, 4lb 14.81oz, 76.7% Composite Age: 33weeks 3days ROXANA: 12/30/2024 Heart Rate: 151bpm Amniotic fluid index: 15.42cm. The largest pocket is 5.3 cm. IMPRESSION: 1. Single live intrauterine gestation as above. 2. Estimated weight is 2231gms. This is the 77th percentile. 3. Amniotic fluid index is 15.4 cm. The largest pocket is 5.3 cm. DATA REPOSITORY:
== END 2024-11-14 02:31 ==
PROVIDERS: PCP Physician Assistant Medical; Visit Provider Obstetrics & Gynecology
DX: Z34.93 Encounter for supervision of normal pregnancy, unspecified, third trimester (principal); Z3A.32 32 weeks gestation of pregnancy
CPT/HCPCS: 76816

== ENCOUNTER 2024-11-29 14:48 | Outpatient (CLI) | payer MEDICAID, SELFPAY ==
[2024-11-29 14:50] VITALS: BP 141/72; PULSE 82; TEMP 36.9
[2024-11-29 14:54] VITALS: BP 141/72; PULSE 82
[2024-11-29 15:33] LABS: MCH 30.1 pg (27.0-33.0); MCHC 33.3 % (32.0-36.0); MCV 90 fL (80-95); MPV 10.9 fL (8.0-11.0); Platelet Count 179 10^3/uL (130-400); RBC 3.65 10^6/uL (3.93-5.22); RDW 14.7 % (11.7-14.6); RDW-SD 48.2 fL; WBC 8.85 10^3/uL (4.4-10.8)
[2024-11-29 16:03] LABS: ALT 20 U/L (14-59); AST 18 U/L (15-37); Albumin 2.6 g/dL (3.4-5.0); Alkaline Phosphatase 103 U/L (46-116); Anion Gap 8.4 mmol/L (3-11); BUN 9 mg/dL (7-18); Bilirubin, Total 0.3 mg/dL (0.2-1.0); CO2 25.6 mmol/L (21.0-32.0); CREATININE 0.6 mg/dL (0.55-1.02); Calcium 8.3 mg/dL (8.5-10.1); Chloride 104 mmol/L (98-107); Estimated GFR 127.67 (mL/min/1.73m2); Glucose 97 mg/dL (74-106); Potassium 3.7 mmol/L (3.5-5.1); Sodium 138 mmol/L (136-145); Total Protein 6.1 g/dL (6.4-8.2)
[2024-11-29 16:22] LABS: COMMENT (LAB VIEW ONLY) 40.71 mg/dL; Prot/Crea Ur Ratio 0.14
--- NOTE | 2024-11-29 17:16 | W.OBNST ---
Date of service: 11/29/24 Time of Service: 17:16 NST Evaluation Reason for NST Reasons for Nonstress Test: DECREASED MOVEMENT Gestational Age Gestational Age in Weeks and Days: 34 Weeks and 4Days Test and Monitor Explained Test/Monitor Explained: Test Explained, Monitor Explained and Patient Verbalized Understanding Vital Signs Blood Pressure: 141/72 Pulse: 82 Temperature: 98.4 F NST Information Date on Monitor: 11/29/24 Time on Monitor: 14:52 Date off Monitor: 11/29/24 Time off Monitor: 15:28 Total Time on Monitor: 36 NST Interventions: PO Hydration Contraction Frequency: 0 NST Evaluation Patient States Movement: Present FHR Baseline: 145 Variability: Moderate 6-25 bpm Accelerations: 15x15 Decelerations: None NST Results: Reactive Note Ultrasound Done: N/A. NST Note Note: NST reactive and reassuring. PreE labs drawn. Scheduled for twice weekly screening. NST Reviewed and Verified by: Beverly Hein
[2024-11-29 17:17] VITALS: BP 141/72; PULSE 82; TEMP 36.9
== END 2024-11-29 15:40 ==
LOC: BCD 14:49 → OBS 14:50
PROVIDERS: Obstetrics & Gynecology; PCP Physician Assistant Medical; Visit Provider Obstetrics & Gynecology
DX: O36.8130 Decreased fetal movements, third trimester, not applicable or unspecified (principal); Z3A.34 34 weeks gestation of pregnancy
CPT/HCPCS: 36415; 80053; 85027; 59025; 82565; 84156

== ENCOUNTER 2024-12-01 07:27 | Outpatient (CLI) | payer MEDICAID, SELFPAY ==
[2024-12-01 09:10] VITALS: BP 130/78; PULSE 99; TEMP 36.9
[2024-12-01 09:30] VITALS: BP 130/78; PULSE 99
--- NOTE | 2024-12-01 10:10 | W.OBNST ---
Date of service: 12/01/24 Time of Service: 09:30 NST Evaluation Reason for NST Reasons for Nonstress Test: GESTATIONAL HYPERTENSION Gestational Age Gestational Age in Weeks and Days: 34 Weeks and 6Days Test and Monitor Explained Test/Monitor Explained: Test Explained, Monitor Explained and Patient Verbalized Understanding Vital Signs Blood Pressure: 130/78 Pulse: 99 Temperature: 98.4 F NST Information Date on Monitor: 12/01/24 Time on Monitor: 09:12 Date off Monitor: 12/01/24 Time off Monitor: 09:40 Total Time on Monitor: 28 NST Interventions: PO Hydration NST Evaluation Patient States Movement: Present FHR Baseline: 150 Variability: Moderate 6-25 bpm Accelerations: 15x15 Decelerations: None NST Results: Reactive Note Ultrasound Done: N/A. NST Note NST Reviewed and Verified by: Dominique Guevara
[2024-12-01 10:14] VITALS: BP 130/78; PULSE 99; TEMP 36.9
== END 2024-12-01 09:46 | disposition other institution (70) ==
LOC: BCD 07:28 → OBS 09:08
PROVIDERS: PCP Physician Assistant Medical; Visit Provider Obstetrics & Gynecology
DX: Z3A.35 35 weeks gestation of pregnancy (principal); O13.3 Gestational [pregnancy-induced] hypertension without significant proteinuria, third trimester
CPT/HCPCS: 59025

== ENCOUNTER 2024-12-05 07:24 | Outpatient (CLI) | payer MEDICAID, SELFPAY ==
[2024-12-05 09:17] VITALS: BP 135/74; PULSE 98
[2024-12-05 09:43] VITALS: BP 135/74; PULSE 98; TEMP 36.6
[2024-12-05 12:16] VITALS: BP 135/74; PULSE 98; TEMP 36.6
--- NOTE | 2024-12-05 12:16 | W.OBNST ---
Date of service: 12/05/24 Time of Service: 12:16 NST Evaluation Reason for NST Reasons for Nonstress Test: GESTATIONAL HYPERTENSION Gestational Age Gestational Age in Weeks and Days: 35 Weeks and 3Days Test and Monitor Explained Test/Monitor Explained: Test Explained, Monitor Explained and Patient Verbalized Understanding Vital Signs Blood Pressure: 135/74 Pulse: 98 Temperature: 97.9 F Urine Results Urine Protein: Negative Urine Ketones: Negative Urine Glucose: Negative Urine Blood: Negative NST Information Date on Monitor: 12/05/24 Time on Monitor: 09:06 Date off Monitor: 12/05/24 Time off Monitor: 09:40 Total Time on Monitor: 34 NST Interventions: PO Hydration, Reposition Patient and Notify Provider Contraction Frequency: 0 NST Evaluation Patient States Movement: Present FHR Baseline: 145 Variability: Moderate 6-25 bpm Accelerations: 15x15 Decelerations: None NST Results: Reactive Note Ultrasound Done: N/A. NST Note Note: Category 1, reactive nonstress testing. NST Reviewed and Verified by: April Marcus
== END 2024-12-05 09:45 ==
LOC: BCD 07:24 → OBS 08:34
PROVIDERS: PCP Physician Assistant Medical; Visit Provider Obstetrics & Gynecology
DX: O13.3 Gestational [pregnancy-induced] hypertension without significant proteinuria, third trimester (principal); Z3A.35 35 weeks gestation of pregnancy
CPT/HCPCS: 59025

== ENCOUNTER 2024-12-08 08:40 | Outpatient (CLI) | payer MEDICAID, SELFPAY ==
[2024-12-08 09:08] VITALS: BP 136/72; PULSE 123; TEMP 36.5
[2024-12-08 09:27] VITALS: BP 131/78; PULSE 110
--- NOTE | 2024-12-08 09:43 | W.OBNST ---
Date of service: 12/08/24 Time of Service: 09:44 NST Evaluation Reason for NST Reasons for Nonstress Test: GESTATIONAL HYPERTENSION Gestational Age Gestational Age in Weeks and Days: 35 Weeks and 6Days Test and Monitor Explained Test/Monitor Explained: Test Explained, Monitor Explained and Patient Verbalized Understanding Vital Signs Blood Pressure: 136/72 Pulse: 123 Temperature: 97.7 F NST Information Date on Monitor: 12/08/24 Time on Monitor: 09:08 Date off Monitor: 12/08/24 Time off Monitor: 09:37 Total Time on Monitor: 29 NST Interventions: PO Hydration Contraction Frequency: 0 NST Evaluation Patient States Movement: Present FHR Baseline: 155 Variability: Moderate 6-25 bpm Accelerations: 15x15 Decelerations: None NST Results: Reactive Note Ultrasound Done: N/A. NST Note Note: Category 1, reactive nonstress test. visit performed. Will need group B strep next visit. NST Reviewed and Verified by: April Marcus
[2024-12-08 09:44] VITALS: BP 136/72; PULSE 123; TEMP 36.5
== END 2024-12-08 09:39 ==
LOC: BCD 08:52 → OBS 09:04
PROVIDERS: PCP Physician Assistant Medical; Visit Provider Obstetrics & Gynecology
DX: O13.3 Gestational [pregnancy-induced] hypertension without significant proteinuria, third trimester (principal); Z3A.35 35 weeks gestation of pregnancy
CPT/HCPCS: 59025

== ENCOUNTER 2024-12-12 07:05 | Outpatient (CLI) | payer MEDICAID, SELFPAY ==
[2024-12-12 09:09] VITALS: BP 132/80; PULSE 99; TEMP 36.8
--- NOTE | 2024-12-12 22:43 | W.OBNST ---
Date of service: 12/12/24 Time of Service: 10:00 NST Evaluation Reason for NST Reasons for Nonstress Test: GESTATIONAL HYPERTENSION Gestational Age Gestational Age in Weeks and Days: 36 Weeks and 3Days Test and Monitor Explained Test/Monitor Explained: Test Explained, Monitor Explained and Patient Verbalized Understanding Vital Signs Blood Pressure: 132/80 Pulse: 99 Temperature: 98.2 F NST Information Date on Monitor: 12/12/24 Time on Monitor: 09:03 Date off Monitor: 12/12/24 NST Interventions: PO Hydration NST Evaluation Patient States Movement: Present FHR Baseline: 145 Variability: Moderate 6-25 bpm Accelerations: 15x15 Decelerations: None NST Results: Reactive Note Ultrasound Done: N/A. NST Note Note: NST reactive and reassuring. Patient denies s/sx of preE. Scheduled for f/u in clinic Wednesday. NST Reviewed and Verified by: Beverly Hein
[2024-12-12 22:44] VITALS: BP 132/80; PULSE 99; TEMP 36.8
== END 2024-12-12 09:35 | disposition other institution (70) ==
LOC: BCD 07:05 → OBS 09:08
PROVIDERS: PCP Physician Assistant Medical; Visit Provider Obstetrics & Gynecology
DX: O13.3 Gestational [pregnancy-induced] hypertension without significant proteinuria, third trimester (principal); Z3A.36 36 weeks gestation of pregnancy
CPT/HCPCS: 59025

== ENCOUNTER 2024-12-15 00:12 | Outpatient (CLI) | payer MEDICAID, SELFPAY ==
--- NOTE | 2024-12-15 06:45 | DI.US_ITS ---
Exam(s) US OB JONO WEIGHT EXAM: US OB JONO WEIGHT CLINICAL HISTORY: Growth and JONO, excessive wt gain affecting O26.00. TECHNIQUE: Transabdominal obstetrical ultrasound performed. COMPARISON: US US OB JONO WEIGHT from 11/14/2024 FINDINGS:: Number of fetuses: 1 position: CEPHALIC Placental location: POST LT, grade 2. No evidence of previa. BIOMETRIC DATA: BPD: 8.9cm, 36weeks HC: 33.44cm, 38weeks 2days AC: 33.18cm, 37weeks 1day FL: 7.42cm, 38weeks EFW: 3,172.1g, 7lb, 67.7% Composite Age: 37weeks 3days ROXANA: 01/02/2025 Heart Rate: 151bpm Amniotic fluid index: 9.85cm. Visually, amount of fluid is within normal limits. IMPRESSION: size and weight are within the expected range. DATA REPOSITORY:
== END 2024-12-15 00:32 ==
PROVIDERS: PCP Physician Assistant Medical; Visit Provider Obstetrics & Gynecology
DX: O26.03 Excessive weight gain in pregnancy, third trimester (principal); Z3A.38 38 weeks gestation of pregnancy
CPT/HCPCS: 76816

== ENCOUNTER 2024-12-15 07:17 | Outpatient (CLI) | payer MEDICAID, SELFPAY ==
[2024-12-15 08:54] VITALS: BP 130/75; PULSE 88; TEMP 36.9
--- NOTE | 2024-12-15 13:43 | W.OBNST ---
Date of service: 12/15/24 Time of Service: 10:00 NST Evaluation Reason for NST Reasons for Nonstress Test: GESTATIONAL HYPERTENSION Gestational Age Gestational Age in Weeks and Days: 36 Weeks and 6Days Test and Monitor Explained Test/Monitor Explained: Test Explained, Monitor Explained and Patient Verbalized Understanding Vital Signs Blood Pressure: 130/75 Pulse: 88 Temperature: 98.4 F Urine Results Urine Protein: Negative Urine Ketones: Negative Urine Glucose: Negative Urine Blood: Negative NST Information Date on Monitor: 12/15/24 Time on Monitor: 08:57 Date off Monitor: 12/15/24 Time off Monitor: 10:04 Total Time on Monitor: 67 NST Interventions: PO Hydration NST Evaluation Patient States Movement: Present FHR Baseline: 135 Variability: Moderate 6-25 bpm Accelerations: 15x15 Decelerations: None NST Results: Reactive Note Ultrasound Done: N/A. NST Note Note: See record. NST Reviewed and Verified by: Dominique Guevara
[2024-12-15 13:45] VITALS: BP 130/75; PULSE 88; TEMP 36.9
== END 2024-12-15 10:18 | disposition other institution (70) ==
LOC: BCD 07:17 → OBS 08:53
PROVIDERS: PCP Physician Assistant Medical; Visit Provider Obstetrics & Gynecology
DX: O13.3 Gestational [pregnancy-induced] hypertension without significant proteinuria, third trimester (principal); Z3A.36 36 weeks gestation of pregnancy
CPT/HCPCS: 59025; 87081

== ENCOUNTER 2024-12-19 08:19 | Outpatient (CLI) | payer MEDICAID, SELFPAY ==
[2024-12-19 09:03] VITALS: BP 133/70; PULSE 110; TEMP 36.9
[2024-12-19 09:11] VITALS: BP 133/70; PULSE 110
--- NOTE | 2024-12-19 10:21 | W.OBNST ---
Date of service: 12/19/24 Time of Service: 10:21 NST Evaluation Reason for NST Reasons for Nonstress Test: GESTATIONAL HYPERTENSION Gestational Age Gestational Age in Weeks and Days: 37 Weeks and 3Days Test and Monitor Explained Test/Monitor Explained: Test Explained, Monitor Explained and Patient Verbalized Understanding Vital Signs Blood Pressure: 133/70 Pulse: 110 Temperature: 98.4 F NST Information Date on Monitor: 12/19/24 Time on Monitor: 09:01 Date off Monitor: 12/19/24 Time off Monitor: 09:40 Total Time on Monitor: 39 NST Interventions: PO Hydration NST Evaluation Patient States Movement: Present FHR Baseline: 150 Variability: Moderate 6-25 bpm Accelerations: 15x15 Decelerations: None NST Results: Reactive Note Ultrasound Done: N/A. NST Note Note: Reports feeling well; denies any s/sx of preE. NST reactive and reassuring. Next appointment Wednesday. PreE precautions reviewed. NST Reviewed and Verified by: Beverly Hein
[2024-12-19 10:22] VITALS: BP 133/70; PULSE 110; TEMP 36.9
== END 2024-12-19 09:45 | disposition other institution (70) ==
LOC: BCD 08:21 → OBS 08:54
PROVIDERS: PCP Physician Assistant Medical; Visit Provider Obstetrics & Gynecology
DX: O13.3 Gestational [pregnancy-induced] hypertension without significant proteinuria, third trimester (principal); Z3A.37 37 weeks gestation of pregnancy
CPT/HCPCS: 59025

== ENCOUNTER 2024-12-22 07:22 | Outpatient (CLI) | payer MEDICAID, SELFPAY ==
[2024-12-22 09:10] VITALS: BP 119/56; PULSE 112; TEMP 36.8
[2024-12-22 09:23] VITALS: BP 119/56; PULSE 123
[2024-12-22 09:59] VITALS: BP 131/78; PULSE 78
--- NOTE | 2024-12-22 10:01 | W.OBNST ---
Date of service: 12/22/24 Time of Service: 10:02 NST Evaluation Reason for NST Reasons for Nonstress Test: GESTATIONAL HYPERTENSION Gestational Age Gestational Age in Weeks and Days: 37 Weeks and 6Days Test and Monitor Explained Test/Monitor Explained: Test Explained, Monitor Explained and Patient Verbalized Understanding Vital Signs Blood Pressure: 119/56 Pulse: 112 Temperature: 98.2 F NST Information Date on Monitor: 12/22/24 Time on Monitor: 09:07 Date off Monitor: 12/22/24 Time off Monitor: 09:45 Total Time on Monitor: 38 NST Interventions: PO Hydration NST Evaluation Patient States Movement: Present FHR Baseline: 145 Variability: Moderate 6-25 bpm Accelerations: 15x15 Decelerations: None NST Results: Reactive Note Ultrasound Done: N/A. NST Note Note: Category 1, reactive nonstress test. Repeat nonstress testing 12/26/2024. Anticipate labor induction at 39 weeks NST Reviewed and Verified by: April Marcus
[2024-12-22 10:02] VITALS: BP 119/56; PULSE 112; TEMP 36.8
== END 2024-12-22 09:45 | disposition other institution (70) ==
LOC: BCD 07:23 → OBS 09:10
PROVIDERS: PCP Physician Assistant Medical; Visit Provider Obstetrics & Gynecology
DX: O13.3 Gestational [pregnancy-induced] hypertension without significant proteinuria, third trimester (principal); Z3A.37 37 weeks gestation of pregnancy
CPT/HCPCS: 59025

== ENCOUNTER 2024-12-26 07:38 | Outpatient (CLI) | payer MEDICAID, SELFPAY ==
[2024-12-26 08:42] VITALS: BP 142/72; PULSE 110; TEMP 37.2
[2024-12-26 09:08] VITALS: BP 142/72; PULSE 110; TEMP 37.2
[2024-12-26 09:24] VITALS: BP 130/85; PULSE 107
--- NOTE | 2024-12-26 10:28 | W.OBNST ---
Date of service: 12/26/24 Time of Service: 10:29 NST Evaluation Reason for NST Reasons for Nonstress Test: GESTATIONAL HYPERTENSION Gestational Age Gestational Age in Weeks and Days: 38 Weeks and 3Days Test and Monitor Explained Test/Monitor Explained: Test Explained, Monitor Explained and Patient Verbalized Understanding Vital Signs Blood Pressure: 142/72 Pulse: 110 Temperature: 98.9 F NST Information Date on Monitor: 12/26/24 Time on Monitor: 08:58 NST Interventions: None NST Evaluation Patient States Movement: Present FHR Baseline: 160 Variability: Moderate 6-25 bpm Accelerations: 15x15 Decelerations: None NST Results: Reactive Note Ultrasound Done: N/A. NST Note Note: Category 1 heart rate tracing. Reactive NST. Initial tachycardia in the 170s. Settled down to a baseline of 160. Patient is scheduled for labor induction on 11/03/2024. Cervical exam, cervix is soft, fingertip, 50%, vertex NST Reviewed and Verified by: April Marcus
[2024-12-26 10:29] VITALS: BP 142/72; PULSE 110; TEMP 37.2
== END 2024-12-26 10:30 ==
LOC: BCD 07:39 → OBS 08:41
PROVIDERS: PCP Physician Assistant Medical; Visit Provider Obstetrics & Gynecology
DX: O13.3 Gestational [pregnancy-induced] hypertension without significant proteinuria, third trimester (principal); Z3A.38 38 weeks gestation of pregnancy
CPT/HCPCS: 59025

== ENCOUNTER 2024-12-29 07:32 | Outpatient (CLI) | payer MEDICAID, SELFPAY ==
[2024-12-29 08:17] VITALS: BP 127/75; PULSE 98; TEMP 36.6
[2024-12-29 08:21] VITALS: BP 127/75; PULSE 98
[2024-12-29 08:31] VITALS: BP 132/81; PULSE 117
--- NOTE | 2024-12-29 14:16 | PDOC.NST_ITS ---
Date of service: 12/29/24 Time of Service: 14:16 NST Evaluation Reason for NST Reasons for Nonstress Test: GESTATIONAL HYPERTENSION Gestational Age Gestational Age in Weeks and Days: 38 Weeks and 6Days Test and Monitor Explained Test/Monitor Explained: Test Explained, Monitor Explained and Patient Verbalized Understanding Vital Signs Blood Pressure: 127/75 Pulse: 98 Temperature: 97.9 F NST Information Date on Monitor: 12/29/24 Time on Monitor: 08:10 NST Interventions: PO Hydration Contraction Frequency: 0 NST Evaluation Patient States Movement: Present FHR Baseline: 140 Variability: Moderate 6-25 bpm Accelerations: 15x15 Decelerations: None NST Results: Reactive Note Ultrasound Done: N/A. NST Note Note: 24-year-old G1, P0 at 38 weeks presenting for NST today. NST is reactive and reassuring. She denies any signs or symptoms of preeclampsia and her blood pre ssure is noted to be appropriate. She is scheduled for an induction of labor at 39 weeks on Wednesday. We discussed some questions she had about induction of labor. She already has a bag packed. We had a discussion about epidural; she anticipates getting one. She expresses interest in mobility during the induction process. All questions were answered to the patient satisfaction. She plans to present to labor and delivery on Wednesday. Labor precautions reviewed and encouraged low threshold for seeking immediate medical evaluation if any further concerns arise. NST Reviewed and Verified by: Beverly Hein
[2024-12-29 14:18] VITALS: BP 127/75; PULSE 98; TEMP 36.6
== END 2024-12-29 09:19 ==
LOC: BCD 07:32 → OBS 08:13
PROVIDERS: PCP Physician Assistant Medical; Visit Provider Obstetrics & Gynecology
DX: O13.3 Gestational [pregnancy-induced] hypertension without significant proteinuria, third trimester (principal); Z3A.38 38 weeks gestation of pregnancy
CPT/HCPCS: 59025

== ENCOUNTER 2025-01-01 17:10 | Inpatient (IN) | payer MEDICAID, SELFPAY ==
--- NOTE | 2024-12-26 14:32 | HPE_ITS ---
Date of service: 12/26/24 Time of Service: 14:32 Assessment and Plan Assessment and plan (1) : Status: Acute Assessment and plan: Is a 24-year-old G1, P0 who will be 39 weeks and 3 days when she presents for labor induction due to gestational hypertension. She has had appropriate and stable surveillance. She will need cervical ripening prior to Pitocin augmentation of her labor. The risk benefits and alternatives have been discussed. Informed consent was obtained. (2) Gestational hypertension: Status: Acute OB-HPI Labor/Delivery History of Present Illness Reason for Visit: Labor induction Chief Complaint: Scheduled Induction of Labor Indication for Induction: Chronic Hypertension. ROXANA Calculator Estimated Delivery Date Method Current WG Current Estimate 01/06/25 LMP (Certain) 38w 3d Other Estimates 01/08/25 Ultrasound #1 38w 1d History of Present Expected Delivery Route/Plan - wants to meet everyone FOB- Joanie Kellogg (his first baby) Plans only FOB as support in labor Specific Issues/Plan 1. Positive 5 Ps - UDS: Neg. 2. Hx of Crohns disease treated with Inflectra- level 2 US - normal anatomy 3. FOB born with clubbed foot, arthrogryposis and congenital scoliosis. 4. CfDNA- low risk, CF-neg, AFP- normal risk 5. Excssive weight gain in - Discussed dietary awareness; growth US's 6. Gestational hypertension - weekly visits and labs. NST's twice weekly Narrative: Patient will present on 01/01/2025 for labor induction. As of my exam today her cervix is soft, 50%, fingertip and will need cervical ripening. Misoprostol per vagina was ordered. Once her cervix is favorable, labor induction with Pitocin will be undertaken. The risk, benefits, and alternatives were all explained to the patient and consent was obtained. As of note, she has been in surveillance with appropriate testing to this point. Blood pressures remain slightly elevated though stable. Review of Systems All systems reviewed & are unremarkable except as noted in HPI and below Eyes Eyes: Reports as per HPI and Reports system reviewed and no additional complaints, except as documented ENT Ears, Nose, Mouth, and Throat: Reports system reviewed and no additional complaints, except as documented and Reports as per HPI Cardiovascular Cardiovascular: Reports system reviewed and no additional complaints, except as documented, Denies chest pain and Denies irregular heart rhythm Respiratory Respiratory: Reports system reviewed and no additional complaints, except as documented, Denies chest congestion and Denies cough Gastrointestinal Gastrointestinal: Reports system reviewed and no additional complaints, except as documented Genitourinary Genitourinary: Reports system reviewed and no additional complaints, except as documented Neurologic Neurologic: Reports system reviewed and no additional complaints, except as documented PFSH All Active Problems (Updated 12/26/24 @ 14:35 by April Marcus DO) Gestational hypertension (Acute) Crohn disease (Chronic) [facility] gastroenterology (Acute) Anemia (Chronic) Medical History (Updated 12/26/24 @ 14:35 by April Marcus DO) Colitis Family History (Updated 06/21/24 @ 10:44 by Radha Hooper CNM) Sister Diabetes Type 1 Mother Multiple sclerosis Maternal Aunt Celiac disease Heart murmur Social History (Updated 06/21/24 @ 17:54 by Radha Hooper CNM) Smoking/Tobacco Use Status: Never Smoking risk assessment performed?: Yes Alcohol Intake: never Drug use: Current Sobriety Substance use type: former substance user Date of last use: marijuana prior to . Household members: spouse Pets and animals: Yes (3 pugs) Pets and animals: dog(s) Do you feel safe at home: Yes History History 1 Para 0 Hx # Term Pregnancies Multiple births Hx # Pregnancies Ectopic pregnancies AB induced Hx Number of Living Children AB spontaneous Meds Allergies and Home Medications Allergies Allergy/AdvReac Type Severity Reaction Status Date / Time No Known Allergies Allergy Unverified 11/29/24 14:05 Home Medications ?Medication ?Instructions ?Recorded ?Confirmed ?Type folic acid 400 mcg tablet 0.4 mg PO DAILY 05/11/24 12/26/24 History infliximab-dyyb 100 mg intravenous IV 05/11/24 12/26/24 History solution (Inflectra) vitamin with calcium 1 tab PO DAILY #90 tabs 05/11/24 12/26/24 Rx no.72-iron 27 mg-folic acid 1 mg tablet doxylamine succinate 25 mg tablet 25 mg PO QHS PRN 05/26/24 12/26/24 History (Unisom (doxylamine)) pyridoxine (vitamin B6) 50 mg 50 mg PO DAILY 05/26/24 12/26/24 History tablet Exam Constitutional Constitutional: no acute distress Detailed Labor and Delivery Exam Dilation: 0.5 Effacement (%): 50 station: -3 Cervix position: posterior Consistency: soft James Score: Cervical Points Exam 0 1 2 3 Dilation Closed 1-2cm 3-4 cm 5-6cm Effacement 0-30% 40-50% 60-70% 80% Consistency Firm Medium Soft Station -3 -2 -1,0 +1,+2 Position Posterior Mid Anterior JAMES Score(Cervical Ripeness Score): 4 Amniotic Membrane Status: Intact Monitor Mode: External Contraction Frequency(min): Irregular Contraction Intensity: Mild Fetus A Heart Rate Baseline: 60 Monitor Accelerations: Present Monitor Decelerations: None Variability: Moderate (6-25 BPM) HEENT Exam HEENT Exam: Normal Neck Exam Neck Exam: Normal Chest/Brest/Axilla Exam Chest Exam: Normal Respiratory Exam Respiratory Exam: Normal Cardiovascular Exam Cardiovascular Exam: Normal Extremities Exam Extremities Exam: Normal Results Results Group Beta Strep: Negative Blood Type: O+ Rubella Status: Immune Varicella Immunity: Immune Risk Assessment Risk for Shoulder Dystocia Historical/Initial OB: NEGATIVE FOR: Pelvic Abnormality, Pre- BMI>30, Previous Shoulder Dystocia or Previous Macrosomia Increased Risk?: No Risk for Pre-Eclampsia Daily Dose ASA Indicated: No Yes, if one or more: NEGATIVE FOR: Hx Pre-E/Gest HTN, Chronic HTN, Multiple Gestation, Pre-gestational DM, Renal Disease, Systemic Lupus or APA Syndrome Yes, if 2 or more: POSITIVE FOR: Nulliparity; NEGATIVE FOR: Age>= 35 yrs, >10yr btwn pregnancies, BMI>30, ethinicty, Mother/Sister w/ Pre-E or Previous IUGR Risk for Post- Hemorrhage Initial: NEGATIVE FOR: Multiple Gestation, Previous PPH, Known Clotting Deficiency, Grand Multiparity or Anticoagulation At Risk?: No Risks Reviewed Risks Reviewed Upon Admission: Yes
[2025-01-01 18:13] VITALS: BP 143/89; PULSE 93; RESP 14; TEMP 36.8
--- NOTE | 2025-01-01 18:14 | W.PM.OBNL1 ---
Date of service: 01/01/25 Time of Service: 18:14 Pelvic Exam Dilation: 1 Effacement (%): 70 station: -3 Cervix Position: anterior Consistency: medium Comments: Vertex Fetus A Heart Rate Baseline: 145 Presentation: Vertex Variability: Moderate (6-25 BPM) Categories: Category I Accelerations: 15 X 15 Decelerations: None Assessment and Plan Assessment and plan (1) Gestational hypertension: Status: Acute Assessment and plan: P0 @39.2wks here for induction due to GHTN. FHT Cat 1. We discussed the process of induction and pain management. She is very anxious about the process and admits to having underlying anxiety. First dose of 25mcg misoprostol placed vaginally. Will continue with oral dosing overnight prn. Anticipate pitocin in the am. Subjective Interval history since last seen: Pt is here for induction of labor due to GHTN. See admission H&P by Dr. Marcus.
[2025-01-01] MEDS: miSOPROStol 25 MCG TAB VG (18:20)
[2025-01-01 19:30] VITALS: BP 139/80; BP 143/69; PULSE 83; PULSE 90; TEMP 36.6; O2SAT 98
[2025-01-01 19:39] LABS: HCT 34.9 % (36.0-46.0); HGB 11.6 g/dL (11.2-15.7); MCH 29.4 pg (27.0-33.0); MCHC 33.2 % (32.0-36.0); MCV 89 fL (80-95); MPV 11.5 fL (8.0-11.0); Platelet Count 195 10^3/uL (130-400); RBC 3.94 10^6/uL (3.93-5.22); RDW 14.1 % (11.7-14.6); RDW-SD 45.2 fL; WBC 8.28 10^3/uL (4.4-10.8)
--- NOTE | 2025-01-01 19:45 | NUR.NOTE ---
Nursing Note: Pt denies pain, visual changes and has normal DTR's, neg clonus. Trace pedal edema noted. Discussed with pt the symptoms or changes to report to this RN. Pt appears happy and cheerful but also has obvious anxiety.
[2025-01-01] MEDS: Calcium Carbonate *TUMS* 500 MG CHEW 1000 MG PO (20:15)
[2025-01-01 22:11] VITALS: BP 136/64; PULSE 74; TEMP 36.4; O2SAT 99
--- NOTE | 2025-01-01 22:16 | NUR.NOTE ---
Nursing Note: Pt up to BR
[2025-01-01] MEDS: Zolpidem 5 MG TAB PO (22:37)
--- NOTE | 2025-01-01 22:53 | NUR.NOTE ---
Nursing Note:2237- Pt is kiesha too frequently for another dose of Misoprostil at this time. Plan to reevaluate hourly
[2025-01-02] VITALS (224 sets, daily range): BP systolic 89–140; BP diastolic 44–84; PULSE 71–129; RESP 16–20; TEMP 36.3–36.9; O2SAT 94–100; BMI 29.2
--- NOTE | 2025-01-02 03:08 | NUR.NOTE ---
Nursing Note: Call to MD to report patient request for pain medications and SVE result.
--- NOTE | 2025-01-02 03:11 | NUR.NOTE ---
Nursing Note: called, new order received
[2025-01-02] MEDS: hydrOXYzine PAMOATE 25 MG CAP PO ×2 (03:31→03:35)
[2025-01-02] MEDS: MORPHine 2 MG/ML SYR 1 MG IVP (05:25)
--- NOTE | 2025-01-02 05:44 | NUR.NOTE ---
Nursing Note:0320. Pt given Visteril an agree to call this RN if no relief or awake in 30,mins to an hour.
--- NOTE | 2025-01-02 05:45 | NUR.NOTE ---
Nursing Note: 0505, this RN checked in on patient, pt up crying and on her phone, when asked how she was doing the patient responded, not good. MD called for pain meds as requested.
--- NOTE | 2025-01-02 07:58 | ANES.PREOP_ITS ---
General Info Date of Service Date Performed: 01/02/25 Height: 5 ft 11 in Weight: 95.254 kg Body Mass Index (BMI): 29.2 Meds Allergies and Home Medications Allergies Allergy/AdvReac Type Severity Reaction Status Date / Time No Known Allergies Allergy Unverified 11/29/24 14:05 Home Medication ?Medication ?Instructions ?Recorded folic acid 400 mcg tablet 0.4 mg PO DAILY 05/11/24 infliximab-dyyb 100 mg intravenous IV 05/11/24 solution (Inflectra) vitamin with calcium 1 tab PO DAILY #90 tabs 05/11/24 no.72-iron 27 mg-folic acid 1 mg tablet doxylamine succinate 25 mg tablet 25 mg PO QHS PRN 05/26/24 (Unisom (doxylamine)) pyridoxine (vitamin B6) 50 mg 50 mg PO DAILY 05/26/24 tablet Current Visit Medications: Current Medications Generic Name Dose Route Start Last Admin Trade Name Freq PRN Reason Stop Dose Admin Ringer's Solution 1,000 mls @ 200 mls/hr 01/01/25 18:30 IV INFUSION BARB IV Miscellaneous Supplies 1 each 01/01/25 18:30 Iv Access IV DIRECTED BARB Misoprostol 25 mcg 01/01/25 22:30 Misoprostol 25 Mcg Tab PO Q4H BARB Sodium Chloride 0 ml 01/01/25 18:29 Normal Saline Flush 10 Ml Syr IVP PRN PRN Sodium Chloride 0 ml 01/01/25 18:00 Normal Saline Flush 10 Ml Syr IVP BID BARB Sodium Chloride 0 ml 01/01/25 18:29 Normal Saline 10 Ml Vial IJ DIRECTED PRN Terbutaline Sulfate 0.25 mg 01/01/25 18:29 Terbutaline 1 Mg/Ml Vial SC PRN PRN PFSH Active Problems Active Problems: Problem Status Onset Code Gestational hypertension Acute O13.9 Crohn disease Chronic K50.90 Acute Z34.90 Anemia Chronic D64.9 Medical History Medical History (Updated 12/26/24 @ 14:35 by April Marcus DO) Colitis Tobacco Smoking/Tobacco Use Status: Never Alcohol Alcohol Intake: never Substance Use Substance use: Current Sobriety Substance use type: former substance user Date of last use: marijuana prior to . Prental History History 2 1 Para 0 Hx # Term Pregnancies Multiple births Hx # Pregnancies Ectopic pregnancies AB induced Hx Number of Living Children AB spontaneous Vital Signs and Lab Results Vital Signs Most Recent Vital Signs in EMR: Most Recent Vital Signs Temp Pulse Resp BP Pulse Ox 36.4 C L 94 H 20 133/62 99 01/02/25 05:38 01/02/25 05:31 01/02/25 05:38 01/02/25 05:31 01/02/25 02:35 Lab Results 01/01/25 19:28 Blood Type / Crossmatch: 2 Antibody Screen NEGATIVE 01/01/25 Complete Blood Count: 2 White Blood Count 8.28 10^3/uL (4.4-10.8) 01/01/25 19:28 Red Blood Count 3.94 10^6/uL (3.93-5.22) 01/01/25 19:28 Hemoglobin 11.6 g/dL (11.2-15.7) 01/01/25 19:28 Hematocrit 34.9 % (36.0-46.0) L 01/01/25 19:28 Platelet Count 195 10^3/uL (130-400) 01/01/25 19:28 Complete Metabolic Panel: 2 No Data to Display Liver Function Panel: 2 No Data to Display Coagulation Panel: 2 No Data to Display Cardiac Panel: 2 No Data to Display Arterial Blood Gas: 2 No Data to Display Venous Blood Gas: 2 No Data to Display Pancreas Panel: 2 No Data to Display Thyroid Panel: 2 No Data to Display Infectious Disease: 2 No Data to Display Blood Cultures: 2 No Data to Display Toxicology Panel: 2 No Data to Display Panel: 2 No Data to Display Anesthesia Assessment and Plan Anesthesia History Personal History: No History of Anesthesia Complications Family History: No Family History of Anesthesia Complications Exercise Tolerance Exercise Tolerance: Metabolic Equivalents>4 Cardiac & Pulmonary Exam Cardiac Exam: Normal S1/S2 Heart Sounds Pulmonary Exam: Clear Bilateral Breath Sounds Implantable Cardiac Device Does patient have a Pacemaker or an ICD?: No Airway Exam Known Difficult Airway: No Mallampati Class: 4 Mouth Opening: Narrow (< 3cm) Thyromental Distance: Less than 3 cm Neck Range of Motion: Full ROM Neck Circumference: Normal Teeth Condition: Normal Dentition ASA Classification ASA Score: ASA 2 Emergency Case?: No NPO Status NPO Status: Unable to Assess Status Status: Confirmed Anesthesia Plan Resuscitation Status: Full Code Anesthesia Technique: Epidural Anesthesia Airway Planned: Natural Airway Pain Management: Epidural Monitors Used: Standard Monitors Preoperative Comments:: 24 yo for IOL due to gestational hypertension requesting labor epidural Sig PMHx: gHTN, anemia, crohns, never smoker. Plt: 195.
[2025-01-02] MEDS: Normal Saline Flush 10 ML SYR IVP (08:15)
[2025-01-02] MEDS: Lactated Ringers 1,000 ML 200 ML IV (08:30)
[2025-01-02] MEDS: FentaNYL/ROPIvacaine 2 mcg/ml and 0.1% 200 ML CADD Cassette EP (08:37)
--- NOTE | 2025-01-02 08:47 | W.ANESNEU ---
Epidural/Spinal Catheter Date Performed: 01/02/25 Procedure Start: 08:24 Procedure Stop: 08:28 Requesting Provider: April Marcus Procedure Location: Obstetrics Reason Performed: Labor Epidural Standard Monitors Applied: Blood Pressure and SpO2 Patient Position: Sitting Sedation Given (Indicate Dose Given): No Sedation given Patient Mental Status: Awake Sterility: Hand Hygiene, Surgical Cap, Surgical Mask, Sterile Gloves, Sterile Drape/Sheet and Chlorhexidine Procedure Location: L2-L3 Interspace Epidural Needle: Tuohy 17 Guage Needle Length: 3.5 Inch Needle Approach: Midline Epidural Procedure: DAFNE to Saline Used Catheter Placed?: Catheter Placed (wire reinforced. ) Test Dose (Indicate Dose Given): 3ml 1.5% Lidocaine with 1:200K Epinephrine Given and Negative Test Dose Loss of Resistance Depth (cm): 5 Catheter depth at skin (cm): 11 Dressing: Sorbaview Dressing Placed, Mastisol Used and Dressing reinforced with Tape Epidural Provider Bolus (Indicate Dose Given): Total Ropivacaine 0.1% with Fentanyl 2mcg/ml Given from pump. (ml) Dose:: 5 mL Additives (Indicate Dose Given ): None Infusion Medication: Medication Infusion Began Medication Infusion: Ropivacaine 0.1% with Fentanyl 2mcg/ml Maintenance Infusion Rate (ml/hour): 10 PCEA Bolus Dose (ml): 5 Block Level: N/A Paresthesia: None Ultrasound: Used to sonny site Number of Attempts (See previous attempts in note section): 1 Procedure Tolerated: No Complications Procedure Outcome: Successful Performed By: Castro Jackman
--- NOTE | 2025-01-02 09:18 | W.PM.OBNL1 ---
Date of service: 01/02/25 Time of Service: 09:18 Pelvic Exam Dilation: 4 Effacement (%): 100 station: -1 Position: OT Cervix Position: anterior Consistency: soft Contractions Monitor Mode: External Contraction Frequency(min): q-4 Contraction Duration(sec): 60 Fetus A Heart Rate Baseline: 140 Variability: Moderate (6-25 BPM) Categories: Category I Assessment and Plan Assessment and plan (1) : Status: Acute Assessment and plan: Labor induction, pain well controlled. Expectant management (2) Gestational hypertension: Status: Acute Objective Abnormal lab results 01/01/25 Range/Units 19: Hct 34.9 L (36.0-46.0) % MPV 11.5 H (8.0-11.0) fL Temp Pulse Resp BP Pulse Ox 98.4 F 114 H 17 116/58 L 99 01/02/25 08:16 01/02/25 09:14 01/02/25 09:03 01/02/25 09:13 01/02/25 09:14 Laboratory Results WBC 8.28 10^3/uL (4.4-10.8) 01/01/25 19: RBC 3.94 10^6/uL (3.93-5.22) 01/01/25 19:28 Hgb 11.6 g/dL (11.2-15.7) 01/01/25 19:28 Hct 34.9 % (36.0-46.0) L 01/01/25 19: MCV 89 fL (80-95) 01/01/25 19: MCH 29.4 pg (27.0-33.0) 01/01/25 19:28 MCHC 33.2 % (32.0-36.0) 01/01/25 19:28 RDW 14.1 % (11.7-14.6) 01/01/25 19:28 Plt Count 195 10^3/uL (130-400) 01/01/25 19:28 MPV 11.5 fL (8.0-11.0) H 01/01/25 19:28 ABO/Rh O Positive 01/01/25 19:28 Antibody Screen NEGATIVE 01/01/25 19:28 Subjective Interval history since last seen: This morning. She was very uncomfortable with contractions every 3 to 4 minutes. On initial examination this morning at 7:45 AM, she was noted to be 4 cm, 100%, -1 station, bulging bag of water. In light of this, information regarding labor. She also has a baseline anxiety. Reassurance was given. Epidural has been placed and she is now comfortable, resting, category 1 heart rate tracing. All questions answered Results Hemoglobin/Hematocrit: Hgb 11.6 g/dL (11.2-15.7) 01/01/25 19:28 Hct 34.9 % (36.0-46.0) L 01/01/25 19:28 Abnormal Lab Findings: Abnormal Labs 01/01/25 19:28 Hct 34.9 L MPV 11.5 H
--- NOTE | 2025-01-02 10:34 | W.PM.OBNL1 ---
Date of service: 01/02/25 Time of Service: 10:35 Informed Consent Informed Consent: Augmentation of Labor Pelvic Exam Dilation: 5 Effacement (%): 100 station: -1 Cervix Position: anterior Consistency: soft Comments: Artificial rupture membranes for clear fluid Contractions Monitor Mode: External Contraction Frequency(min): 10 Fetus A Heart Rate Baseline: 145 Variability: Moderate (6-25 BPM) Categories: Category I FHR Rhythm: Regular Accelerations: Present Decelerations: None Assessment and Plan Assessment and plan (1) Encounter for induction of labor: Status: Acute Assessment and plan: Labor induction due to gestational hypertension. Comfortable with epidural. Artificial rupture membranes for clear fluid. Will augment as needed. Anticipate vaginal . (2) : Status: Acute (3) Gestational hypertension: Status: Acute Objective Abnormal lab results 01/01/25 Range/Units 19:28 Hct 34.9 L (36.0-46.0) % MPV 11.5 H (8.0-11.0) fL Temp Pulse Resp BP Pulse Ox 98.4 F 82 17 98/47 L 99 01/02/25 08:16 01/02/25 10:34 01/02/25 09:03 01/02/25 10:13 01/02/25 10:30 Laboratory Results WBC 8.28 10^3/uL (4.4-10.8) 01/01/25 19:28 RBC 3.94 10^6/uL (3.93-5.22) 01/01/25 19:28 Hgb 11.6 g/dL (11.2-15.7) 01/01/25 19:28 Hct 34.9 % (36.0-46.0) L 01/01/25 19: MCV 89 fL (80-95) 01/01/25 19:28 MCH 29.4 pg (27.0-33.0) 01/01/25 19:28 MCHC 33.2 % (32.0-36.0) 01/01/25 19:28 RDW 14.1 % (11.7-14.6) 01/01/25 19:28 Plt Count 195 10^3/uL (130-400) 01/01/25 19:28 MPV 11.5 fL (8.0-11.0) H 01/01/25 19:28 ABO/Rh O Positive 01/01/25 19: Antibody Screen NEGATIVE 01/01/25 19:28 Subjective Interval history since last seen: Patient seen, comfortable with epidural, uterine contractions have significantly diminished. We discussed plans for augmentation which would be by artificial rupture of membranes, followed by Pitocin if not an adequate labor. She is aware and agrees. Results Hemoglobin/Hematocrit: Hgb 11.6 g/dL (11.2-15.7) 01/01/25 19: Hct 34.9 % (36.0-46.0) L 01/01/25 19:28 Abnormal Lab Findings: Abnormal Labs 01/01/25 19: Hct 34.9 L MPV 11.5 H
[2025-01-02] MEDS: Lactated Ringers 1,000 ML 125 ML IV (11:54)
[2025-01-02] MEDS: Oxytocin/Normal Saline 30 UNIT/500 ML BAG 2 UNITS IV (12:30)
[2025-01-02] MEDS: ePHEDrine 50 MG/ML VIAL IVP (13:51)
--- NOTE | 2025-01-02 16:53 | W.PM.OBNL1 ---
Date of service: 01/02/25 Time of Service: 16:53 Informed Consent Informed Consent: Augmentation of Labor Objective Abnormal lab results 01/01/25 Range/Units 19: Hct 34.9 L (36.0-46.0) % MPV 11.5 H (8.0-11.0) fL Temp Pulse Resp BP Pulse Ox 97.4 F L 97 H 16 119/84 94 01/02/25 16:10 01/02/25 16:13 01/02/25 14:10 01/02/25 16:44 01/02/25 15:37 Laboratory Results WBC 8.28 10^3/uL (4.4-10.8) 01/01/25 19: RBC 3.94 10^6/uL (3.93-5.22) 01/01/25: Hgb 11.6 g/dL (11.2-15.7) 01/01/25 19: Hct 34.9 % (36.0-46.0) L 01/01/25: MCV 89 fL (80-95) 01/01/25 19: MCH 29.4 pg (27.0-33.0) 01/01/25 19: MCHC 33.2 % (32.0-36.0) 01/01/25 19: RDW 14.1 % (11.7-14.6) 01/01/25 19: Plt Count 195 10^3/uL (130-400) 01/01/25 19: MPV 11.5 fL (8.0-11.0) H 01/01/25 19:28 ABO/Rh O Positive 01/01/25 19:28 Antibody Screen NEGATIVE 01/01/25 19:28 Subjective Interval history since last seen: Patient seen and examined. Now complete and pushing with reasonable maternal effort. Position is changed now hands and knees. heart tones are 150s 160s good variability and overall reassuring I would anticipate a vaginal in the relative near future. All questions answered Results Hemoglobin/Hematocrit: Hgb 11.6 g/dL (11.2-15.7) 01/01/25 19: Hct 34.9 % (36.0-46.0) L 01/01/25 19:28 Abnormal Lab Findings: Abnormal Labs 01/01/25 19:28 Hct 34.9 L MPV 11.5 H
--- NOTE | 2025-01-02 18:15 | W.OBDELIVERY ---
Date of service: 01/02/25 Time of Service: 18:15 OB Labor/ Delivery Information Baby A Delivery Delivery Method: Spontaneaous Presentation: Cephalic Vertex Position: Right Occipital Anterior Cord Description-Baby A: 3 Vessels and Other (delayed cord clamping) Amniotic Fluid: Clear Estimated Blood Loss: 400 Delivery Outcome: Liveborn Infant Transferred: Remains with Mother Note: Patient had a labor induction at term due to gestational hypertension. She received 1 dose of misoprostol. She had progressive contractions through the night. Upon my arrival this morning, her cervix was found to be 4 cm 100% -1 station. She received epidural for pain control at that point. Post epidural, her contractions did spaced out somewhat and she had artificial rupture of membranes for clear fluid. Pitocin augmentation was undertaken and she progressed to be completely dilated. With excellent maternal effort she pushed for approximately 2 hours and delivered over an intact perineum. There was no evidence of nuchal cord. Shoulders followed with relative ease. Three-vessel cord was noted and after delayed cord clamping was clamped and transected. Mom held baby briefly and then asked for the baby to be taken to the warmer. Placenta delivered spontaneously, Nikhil position, intact. Evaluation there was noted to be a second-degree posterior vaginal laceration which was repaired after infiltration of lidocaine in the usual fashion and noted to be hemostatic. There was bilateral periurethral lacerations, on the left there is an area with slight ooze which was infiltrated again with lidocaine and a single stitch used to reapproximate this area. Due to her lacerations, patient comfort, Green catheter was placed for continuous bladder drainage through the evening tonight. Both mom and baby are in stable condition in the recovery phase. Qualitative blood loss was 400 mL. Uterus is firm and below the umbilicus. Providers Doctor: April Marcus Endless Bed Drum Sander: Castro Jackman Nurse: Negin Erickson Nurse: Lissett Navarro Labor/Delivery Information Number of Babies in Womb: 1 Steroids Given: None Reason Steroids Not Administered: N/A Group Beta Strep: Negative Rubella Status: Immune Blood Type: O+ Varicella Immunity: Immune Shoulder Dystocia: No Stages of Labor Onset of Labor Date: 01/02/25 Onset of Labor Time: 10:30 Complete Dilatation Date: 01/02/25 Complete Dilatation Time: 14:35 Labor - Stage 1 Duration: 4 hours and 5 minutes ROM Baby A: 01/02/25 ROM Baby A: 10:26 ROM Total Time- Baby A: [id number] Delivery Date-Baby A: 01/02/25 Delivery Time-Baby A: 17:33 Labor Stage 2 Duration: 2 hours and 58 minutes Placenta Delivery Date-Baby A: 01/02/25 Placenta Delivery Time-Baby A: 17:40 Labor-Stage 3 Duration: 7 minutes Total Length of Labor-Baby A: 7 hours and 3 minutes Placenta Status: Delivered Baby A Infant Gender: Male Gestational Status: Term (39-41.6 wks) Gestational Age in Weeks/Days: 39 Weeks and 3 Days weight: 8 lb 1.103 oz Length-Baby A: 20 in Head Circumference-Baby A: 5.02 in Score-1 Minute Interval(Baby A) Heart Rate-1 minute: 100 BPM or Greater Respiratory Effort- 1 minute: Spontaneous/Strong Cry Muscle Tone-1 minute: Active Movement Reflex Response-1 minute: Minimal Response Color-1 minute: Bluish Hands or Feet Total Score-1 minute: 8 Score-5 Minute Interval(Baby A) Respiratory Effort-5 minute: Spontaneous/Strong Cry Muscle Tone-5 minute: Active Movement Reflex Response-5 minute: Prompt Response Color-5 minute: Bluish Hands or Feet
[2025-01-02] MEDS: Acetaminophen 325 MG TAB 650 MG PO (18:47)
[2025-01-02] MEDS: Ibuprofen 600 MG TAB PO (18:47)
[2025-01-02] MEDS: Dibucaine 1% 28 GM TUBE TP (18:48)
[2025-01-02] MEDS: Hamamelis Leaf/Glycerin 100 EACH BOX PR (18:48)
[2025-01-03 00:05] VITALS: BP 102/59; PULSE 92; RESP 18; TEMP 37.1
[2025-01-03] MEDS: Acetaminophen 325 MG TAB 650 MG PO ×2 (05:34→19:19)
[2025-01-03 06:30] LABS: HCT 32.4 % (36.0-46.0); HGB 11.1 g/dL (11.2-15.7); MCH 29.8 pg (27.0-33.0); MCHC 34.3 % (32.0-36.0); MCV 87 fL (80-95); MPV 11.5 fL (8.0-11.0); Platelet Count 175 10^3/uL (130-400); RBC 3.72 10^6/uL (3.93-5.22); RDW 14.4 % (11.7-14.6); RDW-SD 45.8 fL; WBC 15.16 10^3/uL (4.4-10.8)
[2025-01-03 08:40] VITALS: BP 127/80; PULSE 94; RESP 18; TEMP 36.7; O2SAT 98
--- NOTE | 2025-01-03 09:11 | OBPPV_ITS ---
Date of service: 01/03/25 Time of Service: 09:14 Assessment and Plan Assessment and plan (1) Normal spontaneous vaginal delivery: Status: Acute Assessment and plan: day 1 status postnormal spontaneous vaginal delivery. Doing well. Green catheter is out. Patient is ambulating, tolerating regular diet, working on breast-feeding. [place] circumcision requested for today. Anticipate d ischarge home 01/04/2025 Subjective Subjective Interval history: Patient seen and examined this morning. Doing well. Comfortable. Green catheter is out. Patient is been able to void. She has requested circumcision for her son. The risks, benefits, and alternatives were discussed. Patient comments: No complaints Patient's Mood: Appropriate baby status: Doing well, Nursing well and Strong Bonding Observed Exam Physical Exam Vital signs: Temp Pulse Resp BP Pulse Ox 98.8 F 92 H 18 102/59 L 94 01/03/25 00:05 01/03/25 00:05 01/03/25 00:05 01/03/25 00:05 01/02/25 15:37 Vital Signs Reviewed: Yes Constitutional Constitutional: no acute distress HEENT Exam HEENT Exam: Normal Neck Exam Neck Exam: Normal Respiratory Exam Respiratory Exam: Normal Cardiovascular Exam Cardiovascular Exam: Normal Abdominal Exam Comments: Abdomen is soft and nontender Fundal Exam Fundus: Below Umbilicus and Firm Extremities Exam Extremity Exam: Edema (1+, bilateral); negative Calf Tenderness Neurological Exam Neurological Exam: Normal Psychiatric Exam Psychiatric Exam: Normal Results Hemoglobin/Hematocrit: Hgb 11.1 g/dL (11.2-15.7) L 01/03/25 06:10 Hct 32.4 % (36.0-46.0) L 01/03/25 06:10 Abnormal Lab Findings: Abnormal Labs 01/01/25 01/03/25 19:28 06:10 WBC 15.16 H RBC 3.72 L Hgb 11.1 L Hct 34.9 L 32.4 L MPV 11.5 H 11.5 H
[2025-01-03 12:45] VITALS: BP 123/68; PULSE 92; RESP 15; TEMP 36.4
[2025-01-03 15:51] VITALS: BP 124/74; PULSE 85; RESP 15; TEMP 37.1; O2SAT 97
[2025-01-04 02:08] VITALS: BP 121/77; PULSE 82; RESP 17; TEMP 36.8; O2SAT 99
[2025-01-04 07:50] VITALS: BP 132/78; PULSE 89; RESP 16; TEMP 36.5; O2SAT 99
--- NOTE | 2025-01-04 07:55 | W.PM.OBPNV1 ---
Date of service: 01/04/25 Time of Service: 07:55 Assessment and Plan Assessment and plan (1) Normal spontaneous vaginal delivery: Status: Acute Assessment and plan: day #2 status postnormal spontaneous vaginal delivery after labor induction at term due to gestational hypertension. Doing well. No issues or concerns. Discharge home today. Follow-up in 1, 2, and 6 weeks for patient's emotional and physical wellbeing. All questions were answered. Subjective Subjective Interval history: Patient seen day #2 doing well. Ambulating. Tolerating regular diet. Voiding without difficulty. Pain is well-controlled. Teaching has been done. She will follow-up for weight check tomorrow. She is breast-feeding without significant difficulties. All questions were answered today. [place] baby status: Doing well, Nursing well and Strong Bonding Observed Exam Physical Exam Vital signs: Temp Pulse Resp BP Pulse Ox 98.2 F 82 17 121/77 99 01/04/25 02:08 01/04/25 02:08 01/04/25 02:08 01/04/25 02:08 01/04/25 02:08 Vital Signs Reviewed: Yes Constitutional Constitutional: no acute distress HEENT Exam HEENT Exam: Normal Neck Exam Neck Exam: Normal Respiratory Exam Respiratory Exam: Normal Cardiovascular Exam Cardiovascular Exam: Normal Fundal Exam Fundus: Below Umbilicus and Firm Extremities Exam Extremity Exam: Normal; negative Calf Tenderness Neurological Exam Neurological Exam: Normal Psychiatric Exam Psychiatric Exam: Normal Results Hemoglobin/Hematocrit: Hgb 11.1 g/dL (11.2-15.7) L 01/03/25 06:10 Hct 32.4 % (36.0-46.0) L 01/03/25 06:10 Abnormal Lab Findings: Abnormal Labs 01/01/25 01/03/25 19:28 06:10 WBC 15.16 H RBC 3.72 L Hgb 11.1 L Hct 34.9 L 32.4 L MPV 11.5 H 11.5 H
--- NOTE | 2025-01-04 07:57 | W.PM.OBDISCH ---
Date of service: 01/04/25 Time of Service: 07:57 DS: Diagnosis Discharge Diagnosis (1) Normal spontaneous vaginal delivery: Status: Acute Asessment and Plan: Patient is now day #2 status postnormal spontaneous vaginal delivery. She had a labor induction due to gestational hypertension at term. had been complicated by ongoing treatment of her Crohn's disease with no flares. She initially presented for cervical ripening. She received 1 dose of misoprostol and subsequently had spontaneous labor. She received an epidural for pain control had artificial rupture membranes followed by augmentation due to slow progress. She went into the point that she was completely dilated with a baby in the vertex occiput anterior position, she pushed the vertex through an intact perineum. As of note she did have bilateral periurethral lacerations and a small posterior vaginal laceration which was repaired. She and her male infant did well . She is breast-feeding, ambulating, and tolerating regular diet. Baby was circumcised day #1. Should be seen in the office in 1, 2, and 6 weeks. Discharge Plan Disposition Patient Disposition: Home Condition: Good Discharge Details Reason For Visit: Labor induction Admit Date/Time: 01/01/25 17:10 Admit Provider: April Marcus Attending Provider: April Marcus Primary Care Provider: Marisel Bess [facility] Course Hospital Course: Patient had labor induction with initial cervical ripening with miso Prestel x 1 dose. She progressed on to spontaneous labor and had epidural for pain control. She had artificial rupture membranes for clear fluid with a rupture time of less than 12 hours. She was group B strep negative. She had Pitocin augmentation of her labor and progressed to the point that she was completely dilated. She delivered after approximately 1 hour and 45 minutes of pushing. She had bilateral periurethral lacerations and a small posterior vaginal laceration. Overall she did well. She is discharged home day #2 ambulating, tolerating regular diet and oral pain medication with stable vital signs. She is breast-feeding her male . [place] named Tomas. He has been circumcised. She was seen back in the office in 1, 2, and 6 weeks for both physical and emotional wellbeing check. Home Meds and New Rx's Prescriptions: New ibuprofen 800 mg tablet 800 mg PO Q8H PRNQty: 30 1RF docusate sodium [Colace] 100 mg capsule 100 mg PO BID PRNQty: 30 0RF No Action Inflectra 100 mg recon soln IV Rx Instructions: 600 mg IV q 6 weeks. folic acid 400 mcg tablet 0.4 mg PO DAILY PNV,calcium 14-vexm-qjsyi acid 27 mg iron- 1 mg tablet 1 tab PO DAILY Qty: 90 4RF Rx Instructions: give with food (meal/snack) pyridoxine (vitamin B6) 50 mg tablet 50 mg PO DAILY Unisom (doxylamine) 25 mg tablet 25 mg PO QHS PRN Discharge Instructions Activity:: Activity as Tolerated Equipment/Supplies:: No Equipment Needed Diet:: As Tolerated Discharge Orders Discharge Orders: Discharge Order (Routine); Ordered 01/04/25 Ordered By: April Marcus OB:DS Summary Summary Vaginal Delivery Method: Spontaneaous Contraception Discussed Contraception Discussed: Yes, Gender-Baby A: Male weight: 8 lb 1.103 oz Status at Discharge Functional status at discharge: independent ambulation Overall status at discharge: patient is progressing back to baseline Mental Status: mental status grossly normal Speech and Movement: speech and movement normal Mood: congruent mood Affect: normal affect Quality:SDOH Health Related Social Needs: No Data to Display Exam Physical Exam Vital signs: Temp Pulse Resp BP Pulse Ox 98.2 F 82 17 121/77 99 01/04/25 02:08 01/04/25 02:08 01/04/25 02:08 01/04/25 02:08 01/04/25 02:08 Constitutional Comments: See physical exam from progress note dated 01/04/2025 [facility] All Active Problems (Updated 01/03/25 @ 09:17 by April Marcus DO) Normal spontaneous vaginal delivery (Acute) 01/02/2025, labor induction, male infant Tomas 8 pounds 1 ounce, Apgars 8 and 9 Encounter for induction of labor (Acute) Gestational hypertension (Acute) Crohn disease (Chronic) [facility] [place]) Anemia (Chronic) Medical History (Updated 01/03/25 @ 09:17 by April Marcus DO) Colitis Family History (Updated 06/21/24 @ 10:44 by Radha Hooper CNM) Sister Diabetes Type 1 Mother Multiple sclerosis Maternal Aunt Celiac disease Heart murmur Social History (Updated 06/21/24 @ 17:54 by KORI Lucero Smoking/Tobacco Use Status: Never Smoking risk assessment performed?: Yes Alcohol Intake: never Drug use: Current Sobriety Substance use type: former substance user Date of last use: marijuana prior to . Household members: spouse Housing: apartment Pets and animals: Yes (3 pugs) Pets and animals: dog(s) Do you feel safe at home: Yes History History 1 Para 0 Hx # Term Pregnancies Multiple births Hx # Pregnancies Ectopic pregnancies AB induced Hx Number of Living Children AB spontaneous DS: Data Vitals/I&O Vitals and I&O: Vital Signs Temperature 98.2 F 01/04/25 02:08 Temperature Source Oral 01/04/25 02:08 Pulse 82 01/04/25 02:08 Pulse Rhythm Regular 01/03/25 20:15 Respiratory Rate 17 01/04/25 02:08 Respiratory Depth Normal 01/03/25 20:15 Blood Pressure 121/77 01/04/25 02:08 Blood Pressure Mean 91 01/04/25 02:08 Pulse Oximetry 99 01/04/25 02:08 Oxygen Delivery Method Room Air 01/01/25 18:13 Oxygen Flow Rate 0 01/01/25 18:13 Pain Level 4 01/03/25 19:19 Comment Reviewed by Skylar HUFF 01/03/25 15:51 Intake & Output 01/03/25 01/03/25 01/04/25 11:59 23:59 11:59 Output Total 500 / 800 300 / 800 Balance -500 / -800 -300 / -800 Output: Urine 500 / 800 300 / 800 Other: Urine Color Yellow Yellow Urine Appearance Clear Clear Urine Odor None None Comment 2 voids in the hat at this time
[2025-01-04] MEDS: Acetaminophen 325 MG TAB 650 MG PO (08:06)
== END 2025-01-04 11:00 | disposition home or self-care (01) | DRG 806 ==
PROVIDERS: Admitting Provider Obstetrics & Gynecology; PCP Physician Assistant Medical; Visit Provider Obstetrics & Gynecology
DX: O13.4 Gestational [pregnancy-induced] hypertension without significant proteinuria, complicating childbirth (principal); K50.90 Crohn's disease, unspecified, without complications; Z37.0 Single live birth; Z3A.39 39 weeks gestation of pregnancy; O71.82 Other specified trauma to perineum and vulva; O71.4 Obstetric high vaginal laceration alone; O26.03 Excessive weight gain in pregnancy, third trimester; O99.62 Diseases of the digestive system complicating childbirth; O99.02 Anemia complicating childbirth; D64.9 Anemia, unspecified; O99.344 Other mental disorders complicating childbirth; F41.9 Anxiety disorder, unspecified; Z79.620 Long term (current) use of immunosuppressive biologic
CPT/HCPCS: 36415; 85027; 86850; 86900; 86901; 59200; J2270; J3490

== ENCOUNTER 2025-08-07 16:11 | Outpatient (REF) | payer MEDICAID, SELFPAY ==
--- NOTE | 2025-08-07 15:00 | PAPFT_PTH ---
PATIENT: Saranya Landaverde LOC: [facility] U#:[id number] AGE/SX: 25/F ROOM: RE08/07/[address]: April Marcus DO : 2000 BED: DIS: 08/07/2025 SPEC #: [id number] RECD: 08/07/25 18:19 STATUS: TYE REQ #: [id number] [place]: 08/07/25 15:[address]: April Marcus DEPT: [facility] Cytology RECD BY: Ivette Guido ENTERED: 08/07/25 18:20 SP TYPE: PAPFT OTHR DR: Marisel Bess Tissues: 1 - CX/ENDOCX FOR PAP SMEARS Procedures: PAP THIN PREP/[facility] Screening HPV DNA PROBE Comments: [id number] (HPV 16 & 18/45) (CHLAMYDIA/GC)
[2025-08-08 12:14] LABS: Chlamydia Result Negative (Negative); GC Result Negative (Negative)
== END 2025-08-07 16:12 | disposition home or self-care (01) ==
LOC: LBN 16:11
PROVIDERS: PCP Physician Assistant Medical; Visit Provider Obstetrics & Gynecology
DX: Z11.51 Encounter for screening for human papillomavirus (HPV) (principal); Z01.419 Encounter for gynecological examination (general) (routine) without abnormal findings; Z11.3 Encounter for screening for infections with a predominantly sexual mode of transmission
CPT/HCPCS: 87491; 87591; 88142; 87624